=== PATIENT | male | born 1940 | race Caucasian/White ===

== ENCOUNTER 2017-06-17 08:29 | Observation (INO) | payer OTHER ==
[~2017-06-17] VITALS: Ht 177.8 cm; Wt 115.0 kg
[2017-06-17] MEDS ORDERED: DiphenhydrAMINE HCL 50 MG/ML VIAL IV STA ×2 (08:53→13:27)
[2017-06-17] MEDS ORDERED: METHYLPREDNISOLONE 125 MG VIAL IV STA (08:53)
--- NOTE | 2017-06-17 08:56 | EMERGENCY ROOM VISIT NOTE ---
History Report prepared by Marylin: Canelo Turner Under the Supervision of: Dr. Winsome Roman D.O. First contact with patient: 08:47 Chief Complaint: SHORTNESS OF BREATH Stated Complaint: SOB,SORE THROAT History of Present Illness The patient is a 76 year old male who presents to the Emergency Room with complaints of worsening shortness of breath that started upon waking this morning. He says that he has COPD, but he has never been this short of breath. He notes that yesterday morning, he was at a gymnastics meet, and had terrible chills and shaking. The patient states that he does not normally shake. He denies any chest pain, runny nose, abdominal pain, diarrhea, bowel movement changes, urinary symptoms, or leg swelling. He adds that he feels like he is almost going to gag, causing him to feel nauseous. The patent notes no recent exposure to new perfumes or cleaning agents, or any known recent sick contacts. Per the patient's family, the patient sounded almost normal yesterday afternoon after the shaking episode ceased. The patient notes that he has not gotten his flu shot this season, and he does not get a pneumonia shot. Source of History: patient, family Onset: Upon waking this morning Position: other (global - shortness of breath) Symptom Intensity: never had this bad before Timing: worsening Associated Symptoms: + chills, + nausea, No chest pain, No diarrhea, No urinary symptoms Note: Associated symptoms: Shaking episode yesterday. Feels like going to gag. Denies runny nose, bowel movement changes, leg swelling. Review of Systems See HPI for pertinent positives & negatives. A total of 10 systems reviewed and were otherwise negative. Past Medical & Surgical Medical Problems: (1) BPH (benign prostatic hyperplasia) (2) COPD (chronic obstructive pulmonary disease) (3) HTN (hypertension) Family History Family history omitted secondary to patient's advanced age. Social History Drug Use: none Housing Status: lives with family Occupation Status: retired Current/Historical Medications Scheduled Amlodipine (Norvasc), 5 MG PO DAILY Aspirin (Aspirin Ec), 81 MG PO DAILY Losartan Potassium (Cozaar), 100 MG PO DAILY Metoprolol Succ (Toprol Xl) (Toprol-Xl), 50 MG PO DAILY Tamsulosin Hcl (Flomax), 0.4 MG PO HS Allergies Coded Allergies: BEE STING (Unverified Allergy, Unknown, SWELLING, 06/17/17) Physical Exam Vital Signs Date Time Temp Pulse Resp B/P (MAP) Pulse Ox O2 Delivery O2 Flow Rate FiO2 06/17/17 14:59 86 Room Air 06/17/17 14:30 90 23 131/99 92 9.0 06/17/17 13:43 84 06/17/17 12:45 85 24 128/96 92 Nebulizer 06/17/17 10:57 86 24 142/86 91 Nebulizer 06/17/17 10:40 94 Nebulizer 06/17/17 10:36 81 24 122/84 90 Nebulizer 06/17/17 10:07 84 14 92 Nasal Cannula 6.0 06/17/17 09:04 78 24 122/96 93 4.0 06/17/17 08:52 93 Nasal Cannula 4.0 06/17/17 08:48 84 06/17/17 08:42 36.8 89 24 146/109 79 Room Air Physical Exam GENERAL: alert, well appearing, well nourished, no distress, non-toxic EYE EXAM: normal conjunctiva, PERRL and EOM's grossly intact OROPHARYNX: Markedly enlarged and edematous uvula, but is midline. No other exudates or tonsillar hypertrophy. No other mucocutaneous lesions. Lips, buccal mucosa, and tongue normal and mucous membranes are moist NECK: supple, no nuchal rigidity, no adenopathy, non-tender LUNGS: Diminished breath sounds. No wheezes, rhonchi, or rales. Normal chest wall mechanics HEART: no murmurs, S1 normal and S2 normal ABDOMEN: abdomen soft, non-tender, normo-active bowel sounds, no masses, no rebound or guarding. BACK: Back is symmetrical on inspection and there is no deformity, no midline tenderness, no CVA tenderness. SKIN: no rashes and no bruising UPPER EXTREMITIES: upper extremities are grossly normal. LOWER EXTREMITIES: No pitting edema. NEURO EXAM: Normal sensorium, cranial nerves II-XII grossly intact, normal speech, no gross weakness of arms, no gross weakness of legs. Medical Decision & Procedures ER Provider Diagnostic Interpretation: Radiology results have been interpreted by the radiologist and reviewed by me. CHEST 2 VIEWS ROUTINE CLINICAL HISTORY: Shortness of breath COMPARISON STUDY: None FINDINGS: The heart is mildly enlarged. There is aortic tortuosity/ectasia. There is no lobar consolidation. There is interstitial thickening, a finding of uncertain chronicity. There are no significant pleural effusions.[ IMPRESSION: 1. Mild cardiomegaly 2. Aortic tortuosity/ectasia 3. Interstitial thickening, a finding of uncertain chronicity Electronically signed by: William Mcadams M.D. 06/17/2017 9:39 AM Dictated Date/Time: 06/17/2017 9:[address] ANGIOGRAM OF THE CHEST CLINICAL HISTORY: Shortness of breath and elevated d-dimer COMPARISON STUDY: Chest x-ray dated 06/17/2017 TECHNIQUE: Following the IV administration of 94 mL of Optiray-320, CT angiogram of the thorax was performed from the thoracic inlet to the lung bases utilizing the pulmonary embolus protocol. Images are reviewed in the axial, sagittal, and coronal planes. IV contrast was administered without complication. MIP imaging was performed. A dose lowering technique was utilized adhering to the principles of ALARA. CT DOSE: 552.31 mGy.cm FINDINGS: No pathologically enlarged axillary mediastinal or hilar lymph nodes were visualized. There was no evidence of thoracic aortic dilatation. The heart is mildly enlarged with coronary artery calcifications There were no pulmonary artery filling defects to indicate acute pulmonary embolism. No pleural effusions are visualized. There is pulmonary emphysema. There is underlying interstitial lung disease with subpleural reticulation. There is equivocal early honeycombing. There is a 1 cm solid nodule within the right upper lobe. There is an 8 mm solid nodule within the left lower lobe. IMPRESSION: 1. No evidence of acute pulmonary embolism 2. Emphysema. 3. Interstitial lung disease with subpleural reticulation and equivocal early honeycombing 4. Solid 1 cm right upper lobe pulmonary nodule, and solid 8 mm left lower lobe pulmonary nodule. 3-[address] follow-up is recommended. Please refer to below summary of Fleischner criteria recommendations for follow-up of incidental CT nodules (Alexi Serna, Guidelines for management of small pulmonary nodules detected on CT scans: A statement from the Fleischner Society, Radiology 237: [phone].) SOLID NODULES Solitary nodule size: <6 mm * low risk patients: no follow-up needed * high risk patients: optional CT at 12 months Solitary nodule size: 6-8 mm * low risk patients: follow-up at 6-12 months, then consider further follow-up at 18-24 months * high risk patients: initial follow-up CT at 6-12 months and then at 18-24 months if no change Solitary nodule size: >8 mm * either low or high risk patients - consider follow-up CT at 3 months, and/or CT-PET, and/or biopsy Multiple nodules size: <6 mm * low risk patients: no routine follow-up * high risk patients: optional CT at 12 months Multiple nodules size: 6-8 mm * low risk patients: follow-up at 3-6 months, then consider further follow-up at 18-24 months * high risk patients: follow-up at 3-6 months, then at 18-24 months if no change Multiple nodules size: >8 mm * low risk patients: follow-up at 3-6 months, then consider further follow-up at 18-24 months * high risk patients: follow-up at 3-6 months, then at 18-24 months if no change Note: newly detected indeterminate nodule in persons 35 years of age or older. * low risk patients: minimal or absent history of smoking and/or other known risk factors * high risk patients: history of smoking or of other known risk factors (e.g. first degree relative with lung cancer, or exposure to asbestos, radon, uranium) * if a nodule up to 8 mm is partly solid or is ground glass further follow-up is required after 24 months to exclude possible slow growing adenocarcinoma (ANIBAL) SUBSOLID NODULES Solitary pure ground-glass nodule * nodule size <6 mm - no CT follow-up required * nodule size >=6 mm - follow-up CT at 6-12 months, then every 2 years until 5 years Solitary part-solid nodule * nodule size <6 mm - no CT follow-up required * nodule size >=6 mm - follow-up CT at 3-6 months. If unchanged, and solid component remains <6 mm, then annual follow-up for 5 years Multiple subsolid nodules * nodule size <6 mm - follow-up CT at 3-6 months, consider further follow-up at 2 and 4 years if stable * nodule size >=6 mm - follow-up CT at 3-6 months, subsequent management based on the most suspicious nodule(s) Electronically signed by: William Mcadams M.D. 06/17/2017 1:29 PM Dictated Date/Time: 06/17/2017 1:24 PM Laboratory Results Test 06/17/17 08:55 06/17/17 09:00 06/17/17 13:30 Immature Granulocyte % (Auto) 0.5 % White Blood Count 7.86 K/uL (4.8-10.8) Red Blood Count 5.53 M/uL (4.7-6.1) Hemoglobin 17.7 g/dL (14.0-18.0) Hematocrit 51.9 % (42-52) Mean Corpuscular Volume 93.9 fL (80-100) Mean Corpuscular Hemoglobin 32.0 pg (25-34) Mean Corpuscular Hemoglobin Concent 34.1 g/dl (32-36) Platelet Count 124 K/uL (130-400) Mean Platelet Volume 9.7 fL (7.4-10.4) Neutrophils (%) (Auto) 87.1 % Lymphocytes (%) (Auto) 5.1 % Monocytes (%) (Auto) 7.1 % Eosinophils (%) (Auto) 0.1 % Basophils (%) (Auto) 0.1 % Neutrophils # (Auto) 6.84 K/uL (1.4-6.5) Lymphocytes # (Auto) 0.40 K/uL (1.2-3.4) Monocytes # (Auto) 0.56 K/uL (0.11-0.59) Eosinophils # (Auto) 0.01 K/uL (0-0.5) Basophils # (Auto) 0.01 K/uL (0-0.2) Immature Granulocyte # (Auto) 0.04 K/uL (0.00-0.02) Prothrombin Time 12.2 SECONDS (9.0-12.0) Prothromb Time International Ratio 1.1 (0.9-1.1) D-Dimer 5170 ug/L FEU (0-500) Lactic Acid Level 1.1 mmol/L (0.4-2.0) Magnesium Level 2.1 mg/dl (1.8-2.4) Total Bilirubin 0.8 mg/dl (0.2-1) Aspartate Amino Transf (AST/SGOT) 30 U/L (15-37) Alanine Aminotransferase (ALT/SGPT) 31 U/L (12-78) Alkaline Phosphatase 57 U/L (45-117) Troponin I < 0.015 ng/ml (0-0.045) Pro-B-Type Natriuretic Peptide 753 pg/ml (0-900) Total Protein 8.2 gm/dl (6.4-8.2) Albumin 3.5 gm/dl (3.4-5.0) Globulin 4.7 gm/dl (2.5-4.0) Albumin/Globulin Ratio 0.7 (0.9-2) Influenza Type A Antigen Neg for Influ A (NEG) Influenza Type B Antigen Neg for Influ B (NEG) Urine Color YELLOW Urine Appearance CLEAR (CLEAR) Urine pH 5.0 (4.5-7.5) Urine Specific [place] 1.031 (1.000-1.030) Urine Protein 2+ (NEG) Urine Glucose (UA) NEG (NEG) Urine Ketones NEG (NEG) Urine Occult Blood 2+ (NEG) Urine Nitrite NEG (NEG) Urine Bilirubin NEG (NEG) Urine Urobilinogen NEG (NEG) Urine Leukocyte Esterase NEG (NEG) Urine WBC (Auto) 1-5 /hpf (0-5) Urine RBC (Auto) 0-4 /hpf (0-4) Urine Hyaline Casts (Auto) 1-5 /lpf (0-5) Urine Epithelial Cells (Auto) 5-10 /lpf (0-5) Urine Bacteria (Auto) NEG (NEG) Laboratory results per my review. Medications Administered Medications (Trade) Dose Ordered Sig/Shine Route Start Time Stop Time Status Last Admin Dose Admin Methylprednisolone Sodium Succinate (Solu-Medrol IV) 125 mg NOW STAT IV 06/17/17 08:53 06/17/17 08:55 DC 06/17/17 09:02 125 MG Diphenhydramine HCl (Benadryl Inj) 25 mg NOW STAT IV 06/17/17 08:53 06/17/17 08:55 DC 06/17/17 08:59 25 MG Racepinephrine (Raccemic Epinephrine 2.25% 0.5ML Neb) 0.5 ml NOW STAT INH 06/17/17 09:53 06/17/17 09:56 DC 06/17/17 10:06 0.5 ML Albuterol/ Ipratropium (Duoneb) 3 ml NOW STAT INH 06/17/17 11:15 06/17/17 11:16 DC 06/17/17 11:15 3 ML Diphenhydramine HCl (Benadryl Inj) 25 mg NOW STAT IV 06/17/17 13:27 06/17/17 13:28 DC 06/17/17 13:44 25 MG Albuterol/ Ipratropium (Duoneb) 3 ml NOW STAT INH 06/17/17 13:33 06/17/17 13:34 DC 06/17/17 13:41 3 ML ECG Indication: SOB/dyspnea Rate (beats per minute): 81 Rhythm: sinus rhythm Findings: T-wave inversion (lead 3), no acute ischemic change, left axis deviation, other (normal intervals, baseline artifact) ED Course 0847: The patient was evaluated in room B9. A complete history and physical exam was performed. 0853: Ordered Benadryl Inj 25 mg IV, Solu-Medrol IV 125 mg. 0951: I reevaluated and updated the patient. Ordered Raccemic Epinephrine 2.25% 0.5ML Neb 0.5 ml INH. 1044: I reevaluated the patient and his uvula is still swollen but better. 1115: Ordered Duoneb 3 ml INH. 1222: I reevaluated the patient and his uvula is better. Breathing is better. Stats are still 90%. 1434: I reevaluated the patient and he looks much better. His uvula is better. 1520: Upon reevaluation, the patient is resting, but his pulse ox went down. I discussed the findings and the treatment plan with the patient. He expresses agreement and understanding. He will be evaluated for further management. Medical Decision Differential diagnoses includes but is not limited to pneumonia, bronchitis, COPD/Asthma exacerbation, pneumothorax, pulmonary embolism, congestive heart failure, acute coronary syndrome Pt with very atypical presentation. Initially SOB thought perhaps related to significant uvulitis in the setting of COPD hx. Pt not on home oxygen. Cultures drawn due to pt's description of rigors yesterday. No hx of pneumonia. Pt with no other focal symptoms to suggest additional infectious etiology. Doubt deep space infection, doubt strep pharyngitis. Uvulitis improved with meds here and pt improved with oxygen/nebs/steroids. Pt however, dropped sats into mid 80's with ambulation and appeared more sob. I discussed my concern with pt and his family and he is agreeable with additional evaluation by the hospitalist. Afebrile here and no evidence of bacteremia/ sepsis. Medication Reconcilliation Current Medication List: was personally reviewed by me Blood Pressure Screening Patient's blood pressure: Normal blood pressure Consults Time Called: 1529 Consulting Physician: Sherrell hospitalist Returned Call: [phone] D/W Dr. Rizzo for evaluation. Impression Primary Impression: Dyspnea Additional Impressions: COPD exacerbation Uvulitis Scribe Attestation The scribe's documentation has been prepared under my direction and personally reviewed by me in its entirety. I confirm that the note above accurately reflects all work, treatment, procedures, and medical decision making performed by me. Departure Information Dispostion Being Evaluated By Hospitalist Referrals No Doctor, Assigned (PCP) Patient Instructions [facility] Problem Qualifiers Primary Impression: Dyspnea Dyspnea type: unspecified Qualified Codes: R06.00 - Dyspnea, unspecified
[2017-06-17 09:29] LABS: BASO % 0.1 %; BASO ABS # 0.01 K/uL (0-0.2); COMPLETE YES; EOS % 0.1 %; HEMATOCRIT 51.9 % (42-52); IG% 0.5 %; LYMPH % 5.1 %; MEAN CELL VOLUME 93.9 fL (80-100); MEAN CORPUSCULAR HGB CONC 34.1 g/dl (32-36); MEAN PLATELET VOLUME 9.7 fL (7.4-10.4); MONO % 7.1 %; NEUT % 87.1 %; PLATELET COUNT 124 K/uL (130-400); RED BLOOD COUNT 5.53 M/uL (4.7-6.1); WHITE BLOOD COUNT 7.86 K/uL (4.8-10.8)
--- NOTE | 2017-06-17 09:40 | DIAGNOSTIC IMAGING REPORT ---
CHEST 2 VIEWS ROUTINE CLINICAL HISTORY: Shortness of breath COMPARISON STUDY: None FINDINGS: The heart is mildly enlarged. There is aortic tortuosity/ectasia. There is no lobar consolidation. There is interstitial thickening, a finding of uncertain chronicity. There are no significant pleural effusions.[ IMPRESSION: 1. Mild cardiomegaly 2. Aortic tortuosity/ectasia 3. Interstitial thickening, a finding of uncertain chronicity Electronically signed by: William Mcadams M.D. 06/17/2017 9:39 AM Dictated Date/Time: 06/17/2017 9:37 AM
[2017-06-17] MEDS ORDERED: AMLO-110 PO (09:45)
[2017-06-17] MEDS ORDERED: TAMS0.4C38 PO (09:45)
[2017-06-17] MEDS ORDERED: ASPI81TA28 PO (09:45)
[2017-06-17] MEDS ORDERED: LOSA100T65 PO (09:45)
[2017-06-17] MEDS ORDERED: METO50TA7 PO (09:45)
[2017-06-17 09:51] LABS: INR 1.1 (0.9-1.1); PROTHROMBIN TIME (PATIENT) 12.2 SECONDS (9.0-12.0)
[2017-06-17] MEDS ORDERED: RACEPINEPHRINE 2.25% NEBU SOLN 0.5 ML VIAL INH STA ×2 (09:51→09:53)
[2017-06-17 09:54] LABS: ALT/SGPT 31 U/L (12-78); AST/SGOT 30 U/L (15-37); BLOOD UREA NITROGEN 27 mg/dl (7-18); BUN/CREATININE RATIO 16.8 (10-20); CARBON DIOXIDE 23 mmol/L (21-32); CHLORIDE 101 mmol/L (98-107); GLUCOSE 139 mg/dl (70-99); MAGNESIUM 2.1 mg/dl (1.8-2.4); POTASSIUM 3.9 mmol/L (3.5-5.1); SODIUM 135 mmol/L (136-145)
[2017-06-17 09:59] LABS: ALB/GLOB RATIO 0.7 (0.9-2); ALKALINE PHOSPHATASE 57 U/L (45-117)
[2017-06-17 10:07] VITALS: PULSE 84; O2SAT 92
[2017-06-17] MEDS ORDERED: ALBUT/IPRATROP 3MG/0.5MG NEB 3 ML VIAL INH STA ×2 (11:15→13:33)
[2017-06-17] MEDS ORDERED: OPTIRAY 320 IV PRN (13:30)
--- NOTE | 2017-06-17 13:30 | DIAGNOSTIC IMAGING REPORT ---
CT ANGIOGRAM OF THE CHEST CLINICAL HISTORY: Shortness of breath and elevated d-dimer COMPARISON STUDY: Chest x-ray dated 06/17/2017 TECHNIQUE: Following the IV administration of 94 mL of Optiray-320, CT angiogram of the thorax was performed from the thoracic inlet to the lung bases utilizing the pulmonary embolus protocol. Images are reviewed in the axial, sagittal, and coronal planes. IV contrast was administered without complication. MIP imaging was performed. A dose lowering technique was utilized adhering to the principles of ALARA. CT DOSE: 552.31 mGy.cm FINDINGS: No pathologically enlarged axillary mediastinal or hilar lymph nodes were visualized. There was no evidence of thoracic aortic dilatation. The heart is mildly enlarged with coronary artery calcifications There were no pulmonary artery filling defects to indicate acute pulmonary embolism. No pleural effusions are visualized. There is pulmonary emphysema. There is underlying interstitial lung disease with subpleural reticulation. There is equivocal early honeycombing. There is a 1 cm solid nodule within the right upper lobe. There is an 8 mm solid nodule within the left lower lobe. IMPRESSION: 1. No evidence of acute pulmonary embolism 2. Emphysema. 3. Interstitial lung disease with subpleural reticulation and equivocal early honeycombing 4. Solid 1 cm right upper lobe pulmonary nodule, and solid 8 mm left lower lobe pulmonary nodule. 3-[address] follow-up is recommended. Please refer to below summary of Fleischner criteria recommendations for follow-up of incidental CT nodules (Alexi Serna, Guidelines for management of small pulmonary nodules detected on CT scans: A statement from the Fleischner Society, Radiology 237: [phone].) SOLID NODULES Solitary nodule size: <6 mm * low risk patients: no follow-up needed * high risk patients: optional CT at 12 months Solitary nodule size: 6-8 mm * low risk patients: follow-up at 6-12 months, then consider further follow-up at 18-24 months * high risk patients: initial follow-up CT at 6-12 months and then at 18-24 months if no change Solitary nodule size: >8 mm * either low or high risk patients - consider follow-up CT at 3 months, and/or CT-PET, and/or biopsy Multiple nodules size: <6 mm * low risk patients: no routine follow-up * high risk patients: optional CT at 12 months Multiple nodules size: 6-8 mm * low risk patients: follow-up at 3-6 months, then consider further follow-up at 18-24 months * high risk patients: follow-up at 3-6 months, then at 18-24 months if no change Multiple nodules size: >8 mm * low risk patients: follow-up at 3-6 months, then consider further follow-up at 18-24 months * high risk patients: follow-up at 3-6 months, then at 18-24 months if no change Note: newly detected indeterminate nodule in persons 35 years of age or older. * low risk patients: minimal or absent history of smoking and/or other known risk factors * high risk patients: history of smoking or of other known risk factors (e.g. first degree relative with lung cancer, or exposure to asbestos, radon, uranium) * if a nodule up to 8 mm is partly solid or is ground glass further follow-up is required after 24 months to exclude possible slow growing adenocarcinoma (ANIBAL) SUBSOLID NODULES Solitary pure ground-glass nodule * nodule size <6 mm - no CT follow-up required * nodule size >=6 mm - follow-up CT at 6-12 months, then every 2 years until 5 years Solitary part-solid nodule * nodule size <6 mm - no CT follow-up required * nodule size >=6 mm - follow-up CT at 3-6 months. If unchanged, and solid component remains <6 mm, then annual follow-up for 5 years Multiple subsolid nodules * nodule size <6 mm - follow-up CT at 3-6 months, consider further follow-up at 2 and 4 years if stable * nodule size >=6 mm - follow-up CT at 3-6 months, subsequent management based on the most suspicious nodule(s) Electronically signed by: William Mcadams M.D. 06/17/2017 1:29 PM Dictated Date/Time: 06/17/2017 1:24 PM
[2017-06-17 13:50] LABS: URINE APPEARANCE CLEAR (CLEAR); URINE BILIRUBIN NEG (NEG); URINE COLOR YELLOW; URINE NITRITE NEG (NEG); URINE SPECIFIC GRAVITY 1.031 (1.000-1.030); UROBILINOGEN NEG (NEG); ZZUR CULT IF INDIC CLEAN CATCH NO
[2017-06-17 13:51] LABS: MANUAL MICROSCOPIC REQUIRED? NO; REVIEW REQ? NO
[2017-06-17] MEDS ORDERED: IV FLUIDS COMPLETED PRN (17:00)
--- NOTE | 2017-06-17 17:16 | History and Physical ---
History & Physical Date & Time of Service: Jun 17, 2017 at 16:36 Chief Complaint: Sob,Sore Throat Primary Care Physician: No Doctor, Assigned History of Present Illness Source: patient, family, hospital records 76 year old male with PMH of COPD, BPH, HTN presents to the Emergency Room with complaints of worsening shortness of breath starting this morning. Pt said that yesterday he went to watch gymnastic, he said that while at gymnastic he had a chills and starting to shake. He said that this morning he woke up with SOB. Pt said that SOB worsening with minimal exertion. He said that he does have hx of COPD but never felt as SOB as he felt today. He also complaints of sore throat. Pt said that he did not check his temp when he developed the chills and shakiness. He denies any chest pain, palpitation, fever, runny nose, abdominal pain, diarrhea, urinary symptoms, no recent travel or sick contact. In the ER pt oxygen saturation dropped in the 85's. He received solumedrol, racemic epinephrine, Benadryl and DuoNeb treatment in the ER. Past Medical/Surgical History Medical Problems: (1) COPD (chronic obstructive pulmonary disease) Status: Chronic Social History Smoking Status: Former Smoker Drug Use: none Occupational Status: retired Allergies Coded Allergies: BEE STING (Unverified Allergy, Unknown, SWELLING, 06/17/17) Home Medications Scheduled Amlodipine (Norvasc), 5 MG PO DAILY Aspirin (Aspirin Ec), 81 MG PO DAILY Losartan Potassium (Cozaar), 100 MG PO DAILY Metoprolol Succ (Toprol Xl) (Toprol-Xl), 50 MG PO DAILY Tamsulosin Hcl (Flomax), 0.4 MG PO HS Review of Systems Constitutional: + chills, + problem reported (shaking), No fever Eyes: No worsening of vision, No eye pain ENT: + sore throat, No nasal symptoms Respiratory: + shortness of breath, + dyspnea on exertion, No cough, No sputum Cardiovascular: No chest pain, No orthopnea, No edema, No claudication, No palpitations Abdomen: No pain, No vomiting, No diarrhea Musculoskeletal: No swelling, No calf pain Genitourinary - Male: No hematuria, No dysuria Neurologic: No memory loss, No paralysis Psychiatric: No anxiety, No substance abuse Endocrine: No excessive thirst Hematologic / Lymphatic: No abnormal bleeding/bruising Integumentary: No rash, No itch Physical Exam Vital Signs Date Time Temp Pulse Resp B/P (MAP) Pulse Ox O2 Delivery O2 Flow Rate FiO2 06/17/17 16:30 85 105/81 89 Humidified Oxygen 9.0 06/17/17 14:59 86 Room Air 06/17/17 14:30 90 23 131/99 92 9.0 06/17/17 13:43 84 06/17/17 12:45 85 24 128/96 92 Nebulizer 06/17/17 10:57 86 24 142/86 91 Nebulizer 06/17/17 10:40 94 Nebulizer 06/17/17 10:36 81 24 122/84 90 Nebulizer 06/17/17 10:07 84 14 92 Nasal Cannula 6.0 06/17/17 09:04 78 24 122/96 93 4.0 06/17/17 08:52 93 Nasal Cannula 4.0 06/17/17 08:48 84 06/17/17 08:42 36.8 89 24 146/109 79 Room Air General Appearance: WD/WN, no apparent distress Head: normocephalic, atraumatic Eyes: PERRL, EOMI ENT: hearing grossly normal, + pertinent finding (swelling and redness of the uvula, no exudate) Neck: no JVD, trachea midline Respiratory/Chest: lungs clear, normal breath sounds, no accessory muscle use Cardiovascular: regular rate, rhythm, no edema Abdomen/GI: normal bowel sounds, non tender Back: no CVA tenderness Extremities/Musculoskelatal: no calf tenderness Neurologic/Psych: no motor/sensory deficits, alert, oriented x 3 Skin: warm/dry, no rash Diagnostics Laboratory Results Results Past 24 Hours Test 06/17/17 08:55 06/17/17 09:00 06/17/17 13:30 Range/Units White Blood Count 7.86 4.8-10.8 K/uL Red Blood Count 5.53 4.7-6.1 M/uL Hemoglobin 17.7 14.0-18.0 g/dL Hematocrit 51.9 42-52 % Mean Corpuscular Volume 93.9 80-100 fL Mean Corpuscular Hemoglobin 32.0 25-34 pg Mean Corpuscular Hemoglobin Concent 34.1 32-36 g/dl Platelet Count 124 130-400 K/uL Mean Platelet Volume 9.7 7.4-10.4 fL Neutrophils (%) (Auto) 87.1 % Lymphocytes (%) (Auto) 5.1 % Monocytes (%) (Auto) 7.1 % Eosinophils (%) (Auto) 0.1 % Basophils (%) (Auto) 0.1 % Neutrophils # (Auto) 6.84 1.4-6.5 K/uL Lymphocytes # (Auto) 0.40 1.2-3.4 K/uL Monocytes # (Auto) 0.56 0.11-0.59 K/uL Eosinophils # (Auto) 0.01 0-0.5 K/uL Basophils # (Auto) 0.01 0-0.2 K/uL RDW Standard Deviation 46.6 36.4-46.3 fL RDW Coefficient of Variation 13.6 11.5-14.5 % Immature Granulocyte % (Auto) 0.5 % Immature Granulocyte # (Auto) 0.04 0.00-0.02 K/uL Prothrombin Time 12.2 9.0-12.0 SECONDS Prothromb Time International Ratio 1.1 0.9-1.1 D-Dimer 5170 0-500 ug/L FEU Sodium Level 135 136-145 mmol/L Potassium Level 3.9 3.5-5.1 mmol/L Chloride Level 101 98-107 mmol/L Carbon Dioxide Level 23 21-32 mmol/L Anion Gap 12.0 3-11 mmol/L Blood Urea Nitrogen 27 7-18 mg/dl Creatinine 1.60 0.60-1.40 mg/dl Est Creatinine Clear Calc Drug Dose 51.4 ml/min Estimated GFR () 48.5 Estimated GFR (Non- 41.8 BUN/Creatinine Ratio 16.8 10-20 Random Glucose 139 70-99 mg/dl Lactic Acid Level 1.1 0.4-2.0 mmol/L Calcium Level 9.0 8.5-10.1 mg/dl Magnesium Level 2.1 1.8-2.4 mg/dl Total Bilirubin 0.8 0.2-1 mg/dl Aspartate Amino Transf (AST/SGOT) 30 15-37 U/L Alanine Aminotransferase (ALT/SGPT) 31 12-78 U/L Alkaline Phosphatase 57 45-117 U/L Troponin I < 0.015 0-0.045 ng/ml Pro-B-Type Natriuretic Peptide 753 0-900 pg/ml Total Protein 8.2 6.4-8.2 gm/dl Albumin 3.5 3.4-5.0 gm/dl Globulin 4.7 2.5-4.0 gm/dl Albumin/Globulin Ratio 0.7 0.9-2 Influenza Type A Antigen Neg for Influ A NEG Influenza Type B Antigen Neg for Influ B NEG Urine Color YELLOW Urine Appearance CLEAR CLEAR Urine pH 5.0 4.5-7.5 Urine Specific [place] 1.031 1.000-1.030 Urine Protein 2+ NEG Urine Glucose (UA) NEG NEG Urine Ketones NEG NEG Urine Occult Blood 2+ NEG Urine Nitrite NEG NEG Urine Bilirubin NEG NEG Urine Urobilinogen NEG NEG Urine Leukocyte Esterase NEG NEG Urine WBC (Auto) 1-5 0-5 /hpf Urine RBC (Auto) 0-4 0-4 /hpf Urine Hyaline Casts (Auto) 1-5 0-5 /lpf Urine Epithelial Cells (Auto) 5-10 0-5 /lpf Urine Bacteria (Auto) NEG NEG Microbiology Results 06/17/17 Blood Culture, Received Pending 06/17/17 Blood Culture, Received Pending Diagnostic Radiology CT ANGIOGRAM OF THE CHEST CLINICAL HISTORY: Shortness of breath and elevated d-dimer COMPARISON STUDY: Chest x-ray dated 06/17/2017 TECHNIQUE: Following the IV administration of 94 mL of Optiray-320, CT angiogram of the thorax was performed from the thoracic inlet to the lung bases utilizing the pulmonary embolus protocol. Images are reviewed in the axial, sagittal, and coronal planes. IV contrast was administered without complication. MIP imaging was performed. A dose lowering technique was utilized adhering to the principles of ALARA. CT DOSE: 552.31 mGy.cm FINDINGS: No pathologically enlarged axillary mediastinal or hilar lymph nodes were visualized. There was no evidence of thoracic aortic dilatation. The heart is mildly enlarged with coronary artery calcifications There were no pulmonary artery filling defects to indicate acute pulmonary embolism. No pleural effusions are visualized. There is pulmonary emphysema. There is underlying interstitial lung disease with subpleural reticulation. There is equivocal early honeycombing. There is a 1 cm solid nodule within the right upper lobe. There is an 8 mm solid nodule within the left lower lobe. IMPRESSION: 1. No evidence of acute pulmonary embolism 2. Emphysema. 3. Interstitial lung disease with subpleural reticulation and equivocal early honeycombing 4. Solid 1 cm right upper lobe pulmonary nodule, and solid 8 mm left lower lobe pulmonary nodule. 3-[address] follow-up is recommended. Please refer to below summary of Fleischner criteria recommendations for follow-up of incidental CT nodules (Alexi Serna, Guidelines for management of small pulmonary nodules detected on CT scans: A statement from the Fleischner Society, Radiology 237: [phone].) SOLID NODULES Solitary nodule size: <6 mm * low risk patients: no follow-up needed * high risk patients: optional CT at 12 months Solitary nodule size: 6-8 mm * low risk patients: follow-up at 6-12 months, then consider further follow-up at 18-24 months * high risk patients: initial follow-up CT at 6-12 months and then at 18-24 months if no change Solitary nodule size: >8 mm * either low or high risk patients - consider follow-up CT at 3 months, and/or CT-PET, and/or biopsy Multiple nodules size: <6 mm * low risk patients: no routine follow-up * high risk patients: optional CT at 12 months Multiple nodules size: 6-8 mm * low risk patients: follow-up at 3-6 months, then consider further follow-up at 18-24 months * high risk patients: follow-up at 3-6 months, then at 18-24 months if no change Multiple nodules size: >8 mm * low risk patients: follow-up at 3-6 months, then consider further follow-up at 18-24 months * high risk patients: follow-up at 3-6 months, then at 18-24 months if no change Note: newly detected indeterminate nodule in persons 35 years of age or older. * low risk patients: minimal or absent history of smoking and/or other known risk factors * high risk patients: history of smoking or of other known risk factors (e.g. first degree relative with lung cancer, or exposure to asbestos, radon, uranium) * if a nodule up to 8 mm is partly solid or is ground glass further follow-up is required after 24 months to exclude possible slow growing adenocarcinoma (ANIBAL) SUBSOLID NODULES Solitary pure ground-glass nodule * nodule size <6 mm - no CT follow-up required * nodule size >=6 mm - follow-up CT at 6-12 months, then every 2 years until 5 years Solitary part-solid nodule * nodule size <6 mm - no CT follow-up required * nodule size >=6 mm - follow-up CT at 3-6 months. If unchanged, and solid component remains <6 mm, then annual follow-up for 5 years Multiple subsolid nodules * nodule size <6 mm - follow-up CT at 3-6 months, consider further follow-up at 2 and 4 years if stable * nodule size >=6 mm - follow-up CT at 3-6 months, subsequent management based on the most suspicious nodule(s) Electronically signed by: William Mcadams M.D. 06/17/2017 1:29 PM Dictated Date/Time: 06/17/2017 1:24 PM [~ rep ct add3]] CHEST 2 VIEWS ROUTINE CLINICAL HISTORY: Shortness of breath COMPARISON STUDY: None FINDINGS: The heart is mildly enlarged. There is aortic tortuosity/ectasia. There is no lobar consolidation. There is interstitial thickening, a finding of uncertain chronicity. There are no significant pleural effusions.[ IMPRESSION: 1. Mild cardiomegaly 2. Aortic tortuosity/ectasia 3. Interstitial thickening, a finding of uncertain chronicity Electronically signed by: William Mcadams M.D. 06/17/2017 9:39 AM Dictated Date/Time: 06/17/2017 9:37 AM Impression Assessment and Plan Worsening Dyspnea Pharyngitis Uvulitis Present with shortness of breath associated with chills and shaking Afebrile, no leukocytosis Received solumedrol/ IV benadryl/ duoneb and epinephrine in the ER Procalcitonin adding- result pending lactic acid normal Continue supplement oxygen Blood cx collected in the ER Will start on Abx if procalcitonin elevate Monitor CBC ( mostly will be elevated due to steroid) Elevated creatine level Unknown baseline Possible related to dehydration since pt has not been eating or drink much Will start on gentle IVF Hold losartan for now monitor BMP HTN On Norvasc, metoprolol Losartan on hold Monitor BP BPH Continue flomax Diet Start on Full liquid diet due to the sore throat DVT px on heparin subq CODE STATUS FULL CODE Level of Care Med/Surg Resuscitation Status FULL RESUSCITATION VTE Prophylaxis VTE Risk Assessment Done? Y/N: Yes Risk Level: Moderate Given or contraindicated: Unfractionated heparin SQ
[2017-06-17 17:55] VITALS: BP 109/77; PULSE 80; TEMP 36.6; O2SAT 94; Ht 177.8 cm; Wt 115.0 kg
[2017-06-17] MEDS: SODIUM CHLORIDE 0.9% 1000ML 1,000 ML IV SCH (19:08)
[2017-06-17] MEDS: AMPICILLIN/SULBACTAM SOD INJ 3,000 MG in SODIUM CHLORIDE 0.9% 100ML 100 ML IV SCH (19:51)
[2017-06-17 20:07] VITALS: PULSE 77; O2SAT 94
[2017-06-17] MEDS: ALBUT/IPRATROP 3MG/0.5MG NEB 3 ML VIAL INH SCH ×2 (20:07→22:43)
[2017-06-17] MEDS ORDERED: INFLUENZA ADMINISTRATION CHARGE ONE (20:45)
[2017-06-17] MEDS ORDERED: PNEUMOCOCCAL ADMINISTRATION CHARGE ONE (20:45)
[2017-06-17] MEDS ORDERED: PNEUMOCOCCAL POLYSACCHARIDES 25 MCG/0.5 ML VIAL/SYR IM. ONE (20:45)
[2017-06-17] MEDS ORDERED: INFLUENZA VACCINE HIGH DOSE 65+ 0.5 ML SYR IM. ONE (20:45)
[2017-06-17] MEDS: TAMSULOSIN HCL 0.4 MG CAP PO SCH (21:04)
[2017-06-17] MEDS: METHYLPREDNISOLONE IV 20 MG in SYRINGE 0 ML IV SCH (21:04)
[2017-06-17] MEDS: HEPARIN SOD 5000 UNIT/0.5 ML CARP SQ SCH (21:05)
[2017-06-17 21:58] VITALS: O2SAT 91
[2017-06-17 22:43] VITALS: PULSE 67; O2SAT 94
[2017-06-17 22:44] VITALS: BP 109/73; PULSE 68; TEMP 36.8; O2SAT 92
[2017-06-18] VITALS (14 sets, daily range): BP systolic 115–133; BP diastolic 77–84; PULSE 62–89; TEMP 36.4–36.6; O2SAT 90–95
[2017-06-18] MEDS: AMPICILLIN/SULBACTAM SOD INJ 3,000 MG in SODIUM CHLORIDE 0.9% 100ML 100 ML IV SCH ×4 (02:03→20:30)
[2017-06-18] MEDS: ALBUT/IPRATROP 3MG/0.5MG NEB 3 ML VIAL INH SCH ×6 (03:19→23:37)
[2017-06-18] MEDS: SODIUM CHLORIDE 0.9% 1000ML 1,000 ML IV SCH ×2 (05:35→14:50)
[2017-06-18] MEDS: METHYLPREDNISOLONE IV 20 MG in SYRINGE 0 ML IV SCH ×3 (05:35→21:40)
[2017-06-18] MEDS: HEPARIN SOD 5000 UNIT/0.5 ML CARP SQ SCH ×3 (05:38→21:39)
[2017-06-18] MEDS: ASPIRIN 81 MG ECTAB PO SCH (07:53)
[2017-06-18] MEDS: METOPROLOL SUCC 50MG EXT REL TAB PO SCH (07:53)
[2017-06-18] MEDS: AMLODIPINE BESYLATE 5 MG TAB PO SCH (07:53)
[2017-06-18 08:09] LABS: MEAN CELL VOLUME 94.3 fL (80-100); MEAN CORPUSCULAR HEMOGLOBIN 31.3 pg (25-34); MEAN CORPUSCULAR HGB CONC 33.2 g/dl (32-36); MEAN PLATELET VOLUME 9.7 fL (7.4-10.4); PLATELET COUNT 138 K/uL (130-400); WHITE BLOOD COUNT 10.88 K/uL (4.8-10.8)
[2017-06-18 08:33] LABS: BUN/CREATININE RATIO 19.3 (10-20); CALCIUM 8.6 mg/dl (8.5-10.1); CREATININE 1.67 mg/dl (0.60-1.40)
--- NOTE | 2017-06-18 15:14 | Progress Note ---
Medicine Progress Note Date & Time of Visit: Jun 18, 2017 at 15:00. Subjective Pt was seen and examined Sitting at the edge of the bed with no distress Pt said that his breathing feels much better Pt said that his throat does not hurt as bad at it was yesterday Pt oxygen sat dropped during sleep I called his PCP today From the office chart his last oxygen sat was 96% on RA Pt has no hx of COPD on the PCP chart Pt said that he has been having SOB on exertion for the last 5 months Denies any chest pain, palpitation, dizziness and SOB Objective Last 8 Hrs Date Time Temp Pulse Resp B/P (MAP) Pulse Ox O2 Delivery O2 Flow Rate FiO2 06/18/17 14:57 62 16 94 Nasal Cannula 4.0 06/18/17 13:06 92 Humidified Oxygen 4.5 06/18/17 12:15 94 Humidified Oxygen 5.0 06/18/17 11:27 68 16 91 Nasal Cannula 5.0 06/18/17 10:14 93 Humidified Oxygen 5.0 06/18/17 08:00 95 Humidified Oxygen 6.0 06/18/17 07:47 93 Humidified Oxygen 12.0 Free Flow/[place] 06/18/17 07:31 80 16 91 Room Air 06/18/17 07:07 36.4 89 20 133/83 (100) 91 Physical Exam: General- No acute distress Head- atraumatic Eyes- PERRL, EOMI ENT- Uvula swelling and mild erythematous Neck- supple, no JVD Lungs- clear to auscultation Heart- regular rhythm; no murmur Abdomen- normal bowel sounds, soft, Extremities-No calf tenderness Neuro- alert, oriented x 3; PERRL, EOMI; no facial palsy; Skin- warm & dry Laboratory Results: Last 24 Hours Test 06/18/17 07:37 06/18/17 10:41 White Blood Count 10.88 K/uL Red Blood Count 5.30 M/uL Hemoglobin 16.6 g/dL Hematocrit 50.0 % Mean Corpuscular Volume 94.3 fL Mean Corpuscular Hemoglobin 31.3 pg Mean Corpuscular Hemoglobin Concent 33.2 g/dl RDW Standard Deviation 46.1 fL RDW Coefficient of Variation 13.4 % Platelet Count 138 K/uL Mean Platelet Volume 9.7 fL Sodium Level 138 mmol/L Potassium Level 4.0 mmol/L Chloride Level 102 mmol/L Carbon Dioxide Level 24 mmol/L Anion Gap 12.0 mmol/L Blood Urea Nitrogen 32 mg/dl Creatinine 1.67 mg/dl Est Creatinine Clear Calc Drug Dose 49.3 ml/min Estimated GFR () 46.0 Estimated GFR (Non- 39.7 BUN/Creatinine Ratio 19.3 Random Glucose 181 mg/dl Calcium Level 8.6 mg/dl Procalcitonin 4.51 ng/ml Assessment & Plan Worsening Dyspnea Pharyngitis Uvulitis Present with shortness of breath associated with chills and shaking Afebrile, no leukocytosis Received solumedrol/ IV benadryl/ duoneb and epinephrine in the ER Elevated Procalcitonin lactic acid normal Continue required 4L supplement oxygen to keep sat above 93% Blood cx pending Continue Unasyn 3g q6h Called PCP office his last oxygen sat was 96RA on his last office visit in 03/15 No hx of COPD from clinic chart Will get an overnight pulse oximetry Pulmonology consult- pending RONNY Creatine on admission was 1.6 Called PCP his last creatine was 1.2 on 03/15 Possible related to dehydration since pt has not been eating or drink much Continue IVF Continue holding losartan monitor BMP HTN On Norvasc, metoprolol Losartan on hold Monitor BP Stable BPH Continue flomax Diet Continue Full liquid diet due to the sore throat DVT px on heparin subq CODE STATUS FULL CODE Consultants: Pulmonology Current Inpatient Medications: Current Inpatient Medications Medications (Trade) Dose Ordered Sig/Shine Route Start Time Stop Time Status Last Admin Dose Admin Ioversol (Optiray 320) 125 ml UD PRN IV 06/17/17 13:30 06/21/17 13:29 Heparin Sodium (Porcine) (Heparin Sq 5000 Unit/0.5ml) 5,000 unit Q8 SQ 06/17/17 22:00 07/17/17 21:59 Sodium Chloride 1,000 ml @ 100 mls/hr Q10H IV 06/17/17 18:32 07/17/17 18:31 06/18/17 14:50 100 MLS/HR Amlodipine Besylate (Norvasc Tab) 5 mg DAILY PO 06/18/17 08:00 07/18/17 08:59 06/18/17 07:53 5 MG Aspirin (Ecotrin Tab) 81 mg DAILY PO 06/18/17 08:00 07/18/17 08:59 06/18/17 07:53 81 MG Metoprolol Succinate (Toprol Xl Tab) 50 mg DAILY PO 06/18/17 08:00 07/18/17 08:59 06/18/17 07:53 50 MG Tamsulosin HCl (Flomax Cap) 0.4 mg HS PO 06/17/17 22:00 07/17/17 21:59 06/17/17 21:04 0.4 MG Albuterol/ Ipratropium (Duoneb) 3 ml Q4R INH 06/17/17 20:00 07/17/17 19:59 06/18/17 14:56 3 ML Miscellaneous (Iv Fluids Completed) 1 ea PRN PRN N/A 06/17/17 17:00 06/17/18 16:59 Ampicillin Sodium/ Sulbactam Sodium 3000 mg/Sodium Chloride 108 ml @ 200 mls/hr Q6H IV 06/17/17 18:00 06/27/17 17:59 06/18/17 14:06 200 MLS/HR Methylprednisolone Sodium Succinate 20 mg/Syringe 0.32 ml @ 1.5 mls/min Q8H IV 06/17/17 22:00 07/17/17 21:59 06/18/17 13:08 1.5 MLS/MIN
--- NOTE | 2017-06-18 15:16 | Pulmonary Consultation ---
History General Date of Service: Jun 18, 2017. Stated Complaint: Dyspnea HPI The patient is a 76 year old male who presents to [facility] with complaints of Dyspnea. The patient's primary care provider is No Doctor, Assigned. Mr. Fontenot is a 76-year-old male with history of COPD, FEV1 unknown, takes albuerol inhaler prn who presents to the ER with acute shortness of breath occurred shortly after awakening on 06/17/2017. His symptoms shaking and chills started while he was at his [employer] one day prior to admission. He states that he felt chilled, turned up the heat and went to bed. He also had symptoms of nausea but denies any vomiting. Patient complained of sore throat, difficulty swallowing, associated with drooling and difficulty handling secretions upon rising and presented to the ER for further evaluation. He denies any fevers, chest pain, palpitations, rhinorrhea, cough, night sweats, hemoptysis, or weight loss. He denies any genitourinary or other gastrointestinal symptoms. He denies any history of GERD. Does have occasional episodes of coughing while eating. He denies any sick contacts or recent travel. He denies any known allergic exposures to any medications or foods. His exercise tolerance is 50 feet, been progressively worsening over last few months. He denies any orthopnea, paroxysmal nocturnal dyspnea or lower extremity edema. He denies any musculoskeletal weakness, rashes or skin changes. He is a former smoker and quit about 20 years ago. He smoked for 50 years and has a 1 pack ppd smoking history. He is current alcohol user. He drinks a minimum of three 12 oz. beers a day, sometimes with 2-3 rum drinks. He denies any loss of consciousness or aspiration episodes. He denies any withdrawal symptoms such as shakiness or seizures associated with alcohol use. He denies any nose drops or irradiation to the lung. Occupational and environmental exposures include: automobile fumes as a child while working in his [employer]. 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 Several of coworkers have from pulmonary diseases. Also worked in air conditioning/refrigeration. He denies any exposures to pets/birds, humidifiers, hot tubs. Wet carpets or bailey. He denies any family history of pulmonary disease. Upon arrival to the ER his temperature was 36.8, pulse 89, respiratory rate 24, blood pressure 146/109, saturating 79% on room air. He was subsequently placed on 4 L nasal cannula with increased oxygen saturation to 93%. Laboratory data on admission showed a sodium of 135, potassium 3.9, chloride 101 , carbon dioxide level 12, BUN 27 creatinine 1.67. Calcium and magnesium were within normal limits as well as LFTs. Troponin was less than 0.015. ProBNP 753. D-dimer was 5170. Pro-calcitonin 6.31. Blood cultures were drawn still pending. Influenza A and B PCR are negative. UA positive for 2+ urine protein and 2+ urine occult blood. Negative for leukocyte esterase, nitrites and bacteria. In the ER he received Benadryl 25 mg 2, Solu-Medrol 125 mg IV, racemic epi 0.5 MLS 2, albuterol/ipratropium 3 mL 2. Chest x-ray showed mild cardiomegaly, aortic tortuosity and interstitial thickening. CT of the chest with contrast was done and showed no evidence of pulmonary embolism. There were signs of emphysema as well as interstitial lung disease with subpleural reticulation suggestive of possible early honeycombing. There is also a 1 cm solid right upper lobe pulmonary nodule as well as a solid 8 mm left lower lobe pulmonary nodule. He was admitted acute hypoxic respiratory failure secondary to community acquired pneumonia and pharyngitis. He was started empirically on Unasyn 3 gm q8h. Repeat pro-calcitonin today 4.5. His home medications include amlodipine 5 mg by mouth daily, aspirin 81 mg by mouth daily, Toprol-XL 50 mg by mouth daily, started 100 mg by mouth daily and Flomax 0.4 mg by mouth at bedtime. Over the last 24 hours, MAXIMUM TEMPERATURE is 36.4, blood pressure 133/83, pulse 68-89, respiratory rate 16-20, was oximetry 91-95% on 4.5-12 L nasal cannula and oxygen mask. Last pulse oximetry was 92% on 4.5 L/m of humidified oxygen. Historian: patient Onset: yesterday Review of Systems Constitutional: reports: as stated in HPI Eyes: reports: as stated in HPI ENT: reports: as stated in HPI Cardiovascular: reports: as stated in HPI Respiratory: reports: as stated in HPI Gastrointestinal: reports: as stated in HPI Genitourinary - Male: reports: as stated in HPI Musculoskeletal: reports: as stated in HPI Integumentary: reports: as stated in HPI Neurologic: reports: as stated in HPI Psychiatric: reports: as stated in HPI Endocrine: as stated in HPI Hematologic / Lymphatic: as stated in HPI All Other Symptoms All Other Systems: Reviewed and Negative Past Medical History Past Medical History: COPD (FEV1 unknown) Hypertension BPH Social History Smoking Status: Former Smoker Occupational Status: retired Allergies Coded Allergies: BEE STING (Unverified Allergy, Unknown, SWELLING, 06/17/17) Current Medications Reported Home Medications Medications Dose Route/Sig Max Daily Dose Days Date Category Cozaar (Losartan Potassium) 100 Mg Tab 100 Mg PO DAILY 06/17/17 Reported Toprol-Xl (Metoprolol Succinate) 50 Mg Tabcr 50 Mg PO DAILY 06/17/17 Reported Aspirin Ec (Aspirin) 81 Mg Tab 81 Mg PO DAILY 06/17/17 Reported Norvasc (Amlodipine Besylate) 5 Mg Tab 5 Mg PO DAILY 06/17/17 Reported Flomax (Tamsulosin Hcl) 0.4 Mg Cap 0.4 Mg PO HS 06/17/17 Reported Physical Physical Exam Vital Signs: Date Time Temp Pulse Resp B/P (MAP) Pulse Ox O2 Delivery O2 Flow Rate FiO2 06/18/17 13:06 92 Humidified Oxygen 4.5 06/18/17 12:15 94 Humidified Oxygen 5.0 06/18/17 11:27 68 16 91 Nasal Cannula 5.0 06/18/17 10:14 93 Humidified Oxygen 5.0 06/18/17 08:00 95 Humidified Oxygen 6.0 06/18/17 07:47 93 Humidified Oxygen 12.0 Free Flow/Blowby 06/18/17 07:31 80 16 91 Room Air 06/18/17 07:07 36.4 89 20 133/83 (100) 91 06/18/17 03:19 82 16 92 Mask 12.0 50 06/17/17 23:30 Humidified Oxygen 50 Free Flow/Blowby 06/17/17 22:44 36.8 68 20 109/73 (85) 92 Room Air 06/17/17 22:43 67 18 94 Free Flow/Blowby 50 06/17/17 21:58 91 Free Flow/Blowby 40 06/17/17 21:20 Free Flow/Blowby 40 06/17/17 20:07 77 18 94 Free Flow/Blowby 6.0 35 06/17/17 17:55 36.6 80 20 109/77 94 Mask 9.0 06/17/17 17:25 87 24 116/90 92 Humidified Oxygen 9.0 Mask 06/17/17 16:30 85 105/81 89 Humidified Oxygen 9.0 06/17/17 14:59 86 Room Air 06/17/17 14:30 90 23 131/99 92 9.0 General Appearance: WELL-APPEARING, WD/WN, NO APPARENT DISTRESS Head: NORMOCEPHALIC, ATRAUMATIC Eyes: PERRLA, NO DISCHARGE, EOMI, SCLERAE NORMAL ENT: pharynx erythematous, other (Mallampatti IV) Neck: NO TENDERNESS, TRACHEA MIDLINE, NO STRIDOR, SUPPLE Respiratory: BREATH SOUNDS NORMAL, CLEAR TO AUSCULTATION, NO TENDERNESS, accessory muscle use Cardiovasular: REGULAR RATE/RHYTHM, NORMAL S1S2, NO M/G/R Abdomen: NON TENDER, NORMAL BOWEL SOUNDS (obese) Upper Extremities: NO EDEMA, NO DEFORMITY, NORMAL ROM, other (no cyanosis, no clubbing) Lower Extremities: other (trace lower extremity edema, chronic venous changes) Pulses: dorsalis pedis (R) (2+), dorsalis pedis (L) (2+) Neuro: ALERT, ORIENTED x 3, NORMAL MOTOR EXAM Psychiatric: NORMAL AFFECT, NO SUICIDAL IDEATION, CONTRACTS FOR SAFETY Diagnostics Labs Results Past 24 Hours Test 06/18/17 07:37 06/18/17 10:41 Range/Units White Blood Count 10.88 4.8-10.8 K/uL Red Blood Count 5.30 4.7-6.1 M/uL Hemoglobin 16.6 14.0-18.0 g/dL Hematocrit 50.0 42-52 % Mean Corpuscular Volume 94.3 80-100 fL Mean Corpuscular Hemoglobin 31.3 25-34 pg Mean Corpuscular Hemoglobin Concent 33.2 32-36 g/dl RDW Standard Deviation 46.1 36.4-46.3 fL RDW Coefficient of Variation 13.4 11.5-14.5 % Platelet Count 138 130-400 K/uL Mean Platelet Volume 9.7 7.4-10.4 fL Sodium Level 138 136-145 mmol/L Potassium Level 4.0 3.5-5.1 mmol/L Chloride Level 102 98-107 mmol/L Carbon Dioxide Level 24 21-32 mmol/L Anion Gap 12.0 3-11 mmol/L Blood Urea Nitrogen 32 7-18 mg/dl Creatinine 1.67 0.60-1.40 mg/dl Est Creatinine Clear Calc Drug Dose 49.3 ml/min Estimated GFR () 46.0 Estimated GFR (Non- 39.7 BUN/Creatinine Ratio 19.3 10-20 Random Glucose 181 70-99 mg/dl Calcium Level 8.6 8.5-10.1 mg/dl Procalcitonin 4.51 0-0.5 ng/ml Diagnostic Radiology CT ANGIOGRAM OF THE CHEST 06/17/2017 CLINICAL HISTORY: Shortness of breath and elevated d-dimer COMPARISON STUDY: Chest x-ray dated 06/17/2017 TECHNIQUE: Following the IV administration of 94 mL of Optiray-320, CT angiogram of the thorax was performed from the thoracic inlet to the lung bases utilizing the pulmonary embolus protocol. Images are reviewed in the axial, sagittal, and coronal planes. IV contrast was administered without complication. MIP imaging was performed. A dose lowering technique was utilized adhering to the principles of ALARA. CT DOSE: 552.31 mGy.cm FINDINGS: No pathologically enlarged axillary mediastinal or hilar lymph nodes were visualized. There was no evidence of thoracic aortic dilatation. The heart is mildly enlarged with coronary artery calcifications There were no pulmonary artery filling defects to indicate acute pulmonary embolism. No pleural effusions are visualized. There is pulmonary emphysema. There is underlying interstitial lung disease with subpleural reticulation. There is equivocal early honeycombing. There is a 1 cm solid nodule within the right upper lobe. There is an 8 mm solid nodule within the left lower lobe. IMPRESSION: 1. No evidence of acute pulmonary embolism 2. Emphysema. 3. Interstitial lung disease with subpleural reticulation and equivocal early honeycombing 4. Solid 1 cm right upper lobe pulmonary nodule, and solid 8 mm left lower lobe pulmonary nodule. 3-[address] follow-up is recommended. CHEST 2 VIEWS ROUTINE 06/17/2017 CLINICAL HISTORY: Shortness of breath COMPARISON STUDY: None FINDINGS: The heart is mildly enlarged. There is aortic tortuosity/ectasia. There is no lobar consolidation. There is interstitial thickening, a finding of uncertain chronicity. There are no significant pleural effusions.[ IMPRESSION: 1. Mild cardiomegaly 2. Aortic tortuosity/ectasia 3. Interstitial thickening, a finding of uncertain chronicity EKG EKG from 06/17/2017 Ventricular rate of 81 bpm, normal sinus rhythm. Left axis deviation. Minimal voltage criteria for LVH. Abnormal EKG. No previous EKGs available for comparison. Impression Assessment and Plan Acute hypoxic respiratory failure Pharyngis/Uvulitis COPD with possible exacerbation secondary to pneumonia Interstitial lung disease Pulmonary nodules Renal insufficiency Mr. Fontenot has acute hypoxic respiratory failure in the with dyspnea and pharyngitis. It appears that he may have had some upper airway obstruction that resolved with administration of antihistamines and racemic epinephrine. CT chest is negative for pulmonary embolism however shows emphysematous changes with underlying interstitial lung disease with early signs of pulmonary fibrosis , in the setting of renal insufficiency. Etiology of renal disease and chronicity unknown. Of note there also to solid pulmonary nodules in the right upper lobe and lower lobe respectively. With patient's history of previous making this is concerning. Recommendations Continue supplemental oxygen to keep an SaO2 between above 92%. Patient doesn' t have any signs of CO2 retention with compensation an elevated carbon dioxide level and chemistry. Pro-calcitonin elevation is suggestive of underlying bacterial infection. Therefore I would recommend continued treatment with antibiotics to cover community acquired pneumonia, atypical bacteria as well as anaerobic bacteria. Blood cultures are still pending, follow-up. Swab of oral pharynx for bacterial culture. Consider CT of neck as well to evaluate upper airway. Continue with Benadryl, racemic epinephrine as needed. Patient does have underlying emphysematous changes suggestive of COPD. He appears to be a good functional baseline status prior to this. Not on any bronchodilators or inhaled corticosteroids. Recommend for PFT as outpatient. Continue to treat with short course of systemic corticosteroids while inpatient and taper as tolerated. Patient also has underlying interstitial lung disease, etiology unknown. There are signs of mild honeycombing at the periphery. I'll send a full workup for connective tissue disease including rheumatoid factor, AGA, ANCA, complement. I would place patient on PPI for possible gastric reflux and send for a video swallow evaluation to rule out aspiration. Due to patient's hypoxemia and Mallampati IV, with pharyngeal edema. I do not feel that he will be a good candidate for bronchoscopic evaluation. If he should improve, with decreased O2 requirements he may benefit at a later time. Also recommend obtaining baseline TTE to evaluate for pulmonary hypertension. Due to body habitus CO2 he may also have a component of obstructive sleep apnea and obesity hypoventilation syndrome. Nocturnal oximetry has been ordered. He may benefit from polysomnography as an outpatient. Pulmonary nodules--should be followed closely as he is high risk patient with history of previous tobacco use. Recommend repeat CT chest in 3 months to further evaluate for interval resolution. Continue with DVT prophylaxis. I appreciate the consult.
[2017-06-18] MEDS: TAMSULOSIN HCL 0.4 MG CAP PO SCH (21:39)
[2017-06-19] VITALS (8 sets, daily range): BP systolic 132; BP diastolic 73; PULSE 54–64; TEMP 36.6; O2SAT 90–93
[2017-06-19] MEDS: SODIUM CHLORIDE 0.9% 1000ML 1,000 ML IV SCH (00:43)
[2017-06-19] MEDS: AMPICILLIN/SULBACTAM SOD INJ 3,000 MG in SODIUM CHLORIDE 0.9% 100ML 100 ML IV SCH ×3 (02:12→13:48)
[2017-06-19] MEDS: ALBUT/IPRATROP 3MG/0.5MG NEB 3 ML VIAL INH SCH ×4 (02:57→15:44)
[2017-06-19] MEDS: METHYLPREDNISOLONE IV 20 MG in SYRINGE 0 ML IV SCH (05:56)
[2017-06-19] MEDS: HEPARIN SOD 5000 UNIT/0.5 ML CARP SQ SCH ×2 (05:57→13:54)
[2017-06-19] MEDS: METOPROLOL SUCC 50MG EXT REL TAB PO SCH (08:11)
[2017-06-19] MEDS: ASPIRIN 81 MG ECTAB PO SCH (08:13)
[2017-06-19] MEDS: AMLODIPINE BESYLATE 5 MG TAB PO SCH (08:13)
[2017-06-19 09:16] LABS: C-REACTIVE PROTEIN 3.39 mg/dl (0-0.29); CALCIUM 8.6 mg/dl (8.5-10.1); CREATININE 1.29 mg/dl (0.60-1.40); POTASSIUM 4.2 mmol/L (3.5-5.1)
--- NOTE | 2017-06-19 10:11 | ECHOCARDIOGRAM REPORT ---
*NOTICE TO RECEIVING REPUBLICAN AGENCY This information is strictly Confidential and protected under [place] law. [place] law prohibits you from making any further disclosure of this information unless further disclosure is expressly permitted by the written consent of the person to whom it pertains or is authorized by law. A general authorization for the release of medical or other information is not sufficient for this purpose. Hospital accepts no responsibility if the information is made available to any other person, INCLUDING THE PATIENT. Interpretation Summary * Name: LENNIE STEINER Study Date: 06/19/2017 07:33 AM BP: 115/84 mmHg * Patient Location: .[id number]\W451\S\2 HR: 58 * : 1940 (M/d/yyy) Gender: Male Height: 70 in * Age: 76 yrs Ethnicity: CA Weight: 253 lb * Ordering Physician: Marifer Rosas * Referring Physician: Self, Referred * Performed By: Naye Ruvalcaba RCS * * Reason For Study: PULMONARY HTN * BSA: 2.3 m2 * -- Conclusions -- * There is mild concentric left ventricular hypertrophy. * Left ventricular systolic function is normal. * There is mild right ventricular hypertrophy. * Mild to moderate aortic regurgitation. * Right ventricular systolic pressure is elevated at 30-40mmHg. Procedure Details * A complete two-dimensional transthoracic echocardiogram was performed (2D, M-mode, Doppler and color flow Doppler). Left Ventricle * The left ventricle is normal in size. * There is mild concentric left ventricular hypertrophy. * Left ventricular systolic function is normal. * Diastolic function not well characterized * The left ventricular wall motion is normal. Right Ventricle * The right ventricle is not well visualized. * There is mild right ventricular hypertrophy. * The right ventricular systolic function is normal. Atria * The left atrial size is normal. * Right atrial size is normal. Mitral Valve * The mitral valve is grossly normal. * Significant mitral regurgitation is absent. Tricuspid Valve * The tricuspid valve is not well visualized. * There is trace tricuspid regurgitation. * Right ventricular systolic pressure is elevated at 30-40mmHg. Aortic Valve * The aortic valve is not well visualized. * No hemodynamically significant valvular aortic stenosis. * Mild to moderate aortic regurgitation. Great Vessels * The aortic root is normal size. Pericardium/Pleural * There is no pericardial effusion. MMode 2D Measurements and Calculations IVSd 1.9 cm IVSs 2.6 cm LVIDd 4.9 cm LVIDs 3.5 cm LVPWd 1.7 cm LVPWs 2.0 cm IVS/LVPW 1.1 FS 28.4 % EDV(Teich) 114.1 ml ESV(Teich) 51.8 ml EF(Teich) 54.6 % EDV(cubed) 119.4 ml ESV(cubed) 43.9 ml EF(cubed) 63.2 % % IVS thick 37.8 % % LVPW thick 16.9 % LV mass(C)d 422.6 grams LV mass(C)dI 183.2 grams/m\S\2 LV mass(C)s 418.1 grams LV mass(C)sI 181.2 grams/m\S\2 SV(Teich) 62.3 ml SI(Teich) 27.0 ml/m\S\2 SV(cubed) 75.5 ml SI(cubed) 32.7 ml/m\S\2 Ao root diam 3.8 cm Ao root area 11.6 cm\S\2 ACS 2.8 cm LA dimension 3.4 cm LA/Ao 0.88 LVOT diam 2.1 cm LVOT area 3.5 cm\S\2 LVAd ap4 37.0 cm\S\2 LVLd ap4 8.7 cm EDV(MOD-sp4) 129.3 ml EDV(sp4-el) 134.3 ml LVAs ap4 24.6 cm\S\2 LVLs ap4 7.8 cm ESV(MOD-sp4) 66.1 ml ESV(sp4-el) 66.1 ml EF(MOD-sp4) 48.9 % EF(sp4-el) 50.8 % LVAd ap2 41.2 cm\S\2 LVLd ap2 9.1 cm EDV(MOD-sp2) 150.2 ml EDV(sp2-el) 158.3 ml LVAs ap2 24.9 cm\S\2 LVLs ap2 7.6 cm ESV(MOD-sp2) 66.8 ml ESV(sp2-el) 69.4 ml EF(MOD-sp2) 55.6 % EF(sp2-el) 56.2 % LVLd %diff 4.7 % EDV(MOD-bp) 142.9 ml LVLs %diff -2.96 % ESV(MOD-bp) 66.1 ml EF(MOD-bp) 53.7 % SV(MOD-sp4) 63.2 ml SI(MOD-sp4) 27.4 ml/m\S\2 SV(MOD-sp2) 83.5 ml SI(MOD-sp2) 36.2 ml/m\S\2 SV(MOD-bp) 76.8 ml SI(MOD-bp) 33.3 ml/m\S\2 SV(sp4-el) 68.2 ml SI(sp4-el) 29.6 ml/m\S\2 SV(sp2-el) 88.9 ml SI(sp2-el) 38.6 ml/m\S\2 Doppler Measurements and Calculations MV E max tosha 106.8 cm/sec MV A max tosha 77.6 cm/sec MV E/A 1.4 MV P1/2t max tosha 119.1 cm/sec MV P1/2t 90.9 msec MVA(P1/2t) 2.4 cm\S\2 MV dec slope 383.8 cm/sec\S\2 MV dec time 0.20 sec Ao V2 max 147.1 cm/sec Ao max PG 8.7 mmHg Ao max PG (full) 3.4 mmHg RAJESH(V,A) 2.7 cm\S\2 RAJESH(V,D) 2.7 cm\S\2 AI max tosha 370.8 cm/sec AI max PG 55.4 mmHg AI dec slope 160.2 cm/sec\S\2 AI P1/2t 678.1 msec LV V1 max PG 5.2 mmHg LV V1 max 114.4 cm/sec PA V2 max 91.5 cm/sec PA max PG 3.3 mmHg TR max tosha 251.9 cm/sec
--- NOTE | 2017-06-19 14:49 | Progress Note ---
Medicine Progress Note Date & Time of Visit: Jun 19, 2017 at 14:46. Subjective Pt was seen and examined Lying in bed with no distress Pt said that he feels much better today His breathing improved significantly Denies any chest pain, palpitation, dizziness and SOB Objective Last 8 Hrs Date Time Temp Pulse Resp B/P (MAP) Pulse Ox O2 Delivery O2 Flow Rate FiO2 06/19/17 11:46 54 18 93 Room Air 06/19/17 08:11 64 06/19/17 08:00 91 Nasal Cannula 3.0 06/19/17 07:40 56 16 90 Room Air 06/19/17 07:30 36.6 54 20 132/73 (92) 90 Nasal Cannula 3.0 06/19/17 07:17 56 18 90 Room Air Physical Exam: General- No acute distress Head- atraumatic Eyes- PERRL, EOMI ENT- Uvula swelling and mild erythematous Neck- supple, no JVD Lungs- clear to auscultation Heart- regular rhythm; no murmur Abdomen- normal bowel sounds, soft, Extremities-No calf tenderness Neuro- alert, oriented x 3; PERRL, EOMI; no facial palsy; Skin- warm & dry Laboratory Results: Last 24 Hours Test 06/19/17 08:09 06/19/17 08:20 Erythrocyte Sedimentation Rate 41 mm/hr Sodium Level 139 mmol/L Potassium Level 4.2 mmol/L Chloride Level 105 mmol/L Carbon Dioxide Level 27 mmol/L Anion Gap 7.0 mmol/L Blood Urea Nitrogen 26 mg/dl Creatinine 1.29 mg/dl Est Creatinine Clear Calc Drug Dose 63.8 ml/min Estimated GFR () 62.9 Estimated GFR (Non- 54.3 BUN/Creatinine Ratio 20.0 Random Glucose 136 mg/dl Calcium Level 8.6 mg/dl C-Reactive Protein 3.39 mg/dl Assessment & Plan Worsening Dyspnea Pharyngitis Uvulitis Present with shortness of breath associated with chills and shaking Afebrile, no leukocytosis Received solumedrol/ IV benadryl/ duoneb and epinephrine in the ER Elevated Procalcitonin lactic acid normal Continue required 4L supplement oxygen to keep sat above 93% Blood cx pending Continue Unasyn 3g q6h Called PCP office his last oxygen sat was 96RA on his last office visit in 03/15 No hx of COPD from clinic chart Will get an overnight pulse oximetry Pulmonology consult- pending 06/19 Clinically improved significantly Will discharge on Augmentin for 7 days. Solumedrol changed to prednisone 20mg daily Overnight pulse oximetry suggests pt requires oxygen during sleep 2 step done today suggests pt require oxygen with activity Will need an overnight sleep study outpatient case discussed with yeast culture developer Dr. Rosas recommended to start on Symbicort and spiriva (advised pt to rinse his mouth after using the symbicort) manager travel checked for Spiriva, the copay was $220, Symbicort ( $60), Anoro ( 224) Will do Symbicort for now. When seen his PCP, they can trying to do a prior auth or check which anticholinergic his insurance will cover. Will need outpatient PFT test [facility] RONNY Creatine on admission was 1.6 Called PCP his last creatine was 1.2 on 03/15 Possible related to dehydration since pt has not been eating or drink much Creatine today 1.2 D/C Continue IVF Resume losartan on admission monitor BMP HTN On Norvasc, metoprolol Resume losartan on discharge Monitor BP Stable BPH Continue flomax Diet Continue Full liquid diet due to the sore throat DVT px on heparin subq CODE STATUS FULL CODE Disposition Advised pt to call his PCP to schedule a follow up appointment Continue oxygen supplement with activity and during sleep Follow up with [place] [facility]: Pulmonology Current Inpatient Medications: Current Inpatient Medications Medications (Trade) Dose Ordered Sig/Shine Route Start Time Stop Time Status Last Admin Dose Admin Ioversol (Optiray 320) 125 ml UD PRN IV 06/17/17 13:30 06/21/17 13:29 Heparin Sodium (Porcine) (Heparin Sq 5000 Unit/0.5ml) 5,000 unit Q8 SQ 06/17/17 22:00 07/17/17 21:59 Amlodipine Besylate (Norvasc Tab) 5 mg DAILY PO 06/18/17 08:00 07/18/17 08:59 06/19/17 08:13 5 MG Aspirin (Ecotrin Tab) 81 mg DAILY PO 06/18/17 08:00 07/18/17 08:59 06/19/17 08:13 81 MG Metoprolol Succinate (Toprol Xl Tab) 50 mg DAILY PO 06/18/17 08:00 07/18/17 08:59 06/19/17 08:11 50 MG Tamsulosin HCl (Flomax Cap) 0.4 mg HS PO 06/17/17 22:00 07/17/17 21:59 06/18/17 21:39 0.4 MG Albuterol/ Ipratropium (Duoneb) 3 ml Q4R INH 06/17/17 20:00 07/17/17 19:59 06/19/17 11:46 3 ML Miscellaneous (Iv Fluids Completed) 1 ea PRN PRN N/A 06/17/17 17:00 06/17/18 16:59 06/19/17 08:20 1 EA Ampicillin Sodium/ Sulbactam Sodium 3000 mg/Sodium Chloride 108 ml @ 200 mls/hr Q6H IV 06/17/17 18:00 06/27/17 17:59 06/19/17 13:48 200 MLS/HR Prednisone (PredniSONE TAB) 20 mg BID PO 06/19/17 20:00 07/19/17 19:59
[2017-06-19] MEDS ORDERED: PRD20 PO (14:54)
[2017-06-19] MEDS ORDERED: SPRIN/30 INH (14:54)
[2017-06-19] MEDS ORDERED: AMOX875T PO (14:54)
[2017-06-19] MEDS ORDERED: SYMIN160 INH (14:54)
--- NOTE | 2017-06-19 15:05 | Discharge Instructions ---
Discharge Instructions Date of Service Jun 19, 2017. Admission Reason for Admission: Dyspnea Discharge Discharge Diagnosis / Problem: Dyspnea/Pharyngitis/Uvulitis/Acute Kidney Injury Discharge Goals Goal(s): Decrease discomfort, Increase independence, Improve disease control Activity Recommendations Activity Limitations: resume your previous activity (as tolerated) . Instructions / Follow-Up Instructions / Follow-Up Please call to schedule a follow up appointment with your primary care provider within 1 week Call to schedule a follow up appointment with [facility] pulmonology @ Continue oxygen supplement with exertion and at night (Sleeping) Complete the course of antibiotic with Augmentin Continue prednisone for 3 more days Starting on Symbicort ( Anoro or Spiriva was too expensive, cost was about 220) Please rinse your mouth after finishing using the Symbicort Monitor renal function Current Hospital Diet Patient's current hospital diet: AHA Diet (Heart Healthy) Discharge Diet Recommended Diet: AHA Diet (Heart Healthy) Pending Studies Studies pending at discharge: no Medical Emergencies . Who to Call and When: Medical Emergencies: If at any time you feel your situation is an emergency, please call 911 immediately. . Non-Emergent Contact Non-Emergency issues call your: Primary Care Provider Call Non-Emergent contact if: you have any medication questions . . "Provider Documentation" section prepared by Jamal Rizzo. . VTE Core Measure Inpt VTE Proph given/why not?: Unfractionated heparin SQ
== END 2017-06-19 16:15 | disposition home or self-care (01) ==
LOC: C.EDB 08:32 → C.MS4W 16:13 → ENRESERV 17:01
PROVIDERS: ADMIT Internal Medicine; ATTEND Internal Medicine
DX: J96.01 Acute respiratory failure with hypoxia (principal); J02.9 Acute pharyngitis, unspecified; K12.2 Cellulitis and abscess of mouth; J44.1 Chronic obstructive pulmonary disease with (acute) exacerbation; J84.9 Interstitial pulmonary disease, unspecified; R91.8 Other nonspecific abnormal finding of lung field; N17.9 Acute kidney failure, unspecified; I10 Essential (primary) hypertension; N40.0 Benign prostatic hyperplasia without lower urinary tract symptoms; Z87.891 Personal history of nicotine dependence; Z79.82 Long term (current) use of aspirin; Z79.899 Other long term (current) drug therapy

== ENCOUNTER → 2017-07-11 | Outpatient (CLI) | payer OTHER ==
[~2017-07-11] MED LIST: AMLO-110 PO; ASPI81TA28 PO; LOSA100T65 PO; METO50TA7 PO; PRD20 PO; SYMIN160 INH; TAMS0.4C38 PO
[2017-07-11 17:38] LABS: LYME DISEASE AB IGM NEG (NEG)
[2017-07-11 17:39] LABS: LYME DISEASE AB IGG NEG (NEG)
== END | disposition home or self-care (01) ==
LOC: C.LAB1850 15:44
PROVIDERS: ATTEND Physician Assistant
DX: J84.9 Interstitial pulmonary disease, unspecified (principal)

== ENCOUNTER → 2017-08-29 | Outpatient (CLI) | payer OTHER ==
[~2017-08-29] MED LIST changes: -SYMIN160 INH
[2017-08-29 12:20] LABS: BASO % 0.5 %; BASO ABS # 0.05 K/uL (0-0.2); EOS % 2.6 %; EOS ABS # 0.24 K/uL (0-0.5); HEMOGLOBIN 17.1 g/dL (14.0-18.0); IG# 0.05 K/uL (0.00-0.02); LYMPH % 15.2 %; LYMPH ABS # 1.39 K/uL (1.2-3.4); MEAN CELL VOLUME 92.9 fL (80-100); MEAN CORPUSCULAR HEMOGLOBIN 31.1 pg (25-34); MEAN CORPUSCULAR HGB CONC 33.5 g/dl (32-36); MONO % 8.9 %; MONO ABS # 0.82 K/uL (0.11-0.59); NEUT % 72.3 %; NEUT ABS # 6.62 K/uL (1.4-6.5); PLATELET COUNT 181 K/uL (130-400); RED CELL DISTRIBUTION WIDTH CV 13.4 % (11.5-14.5); RED CELL DISTRIBUTION WIDTH SD 45.6 fL (36.4-46.3); WHITE BLOOD COUNT 9.17 K/uL (4.8-10.8)
[2017-08-29 12:55] LABS: CREATININE 1.22 mg/dl (0.60-1.40)
== END | disposition home or self-care (01) ==
LOC: C.LAB1850 10:53
PROVIDERS: ATTEND Internal Medicine Rheumatology
DX: J84.9 Interstitial pulmonary disease, unspecified (principal); R76.8 Other specified abnormal immunological findings in serum

== ENCOUNTER → 2017-09-11 | Outpatient (CLI) | payer OTHER ==
[~2017-09-11] MED LIST changes: -METO50TA7 PO; +METO50TA8 PO
== END | disposition home or self-care (01) ==
LOC: C.LAB1850 14:23
PROVIDERS: ATTEND Internal Medicine Rheumatology
DX: J84.9 Interstitial pulmonary disease, unspecified (principal); R76.8 Other specified abnormal immunological findings in serum

== ENCOUNTER → 2017-09-18 | Outpatient (CLI) | payer OTHER ==
--- NOTE | 2017-09-18 09:27 | DIAGNOSTIC IMAGING REPORT ---
(CHEST) THORAX WITHOUT CLINICAL HISTORY: PULMONARY NODULE COMPARISON STUDY: 06/17/2017 CT DOSE: 698.99 mGycm TECHNIQUE: CT of the thorax was performed from the thoracic inlet to the lung bases. Images are reviewed in the axial, sagittal, and coronal planes. IV contrast was not administered for this examination. A dose lowering technique was utilized adhering to the principles of ALARA. FINDINGS: Thyroid: Imaged portions of the thyroid gland are normal in appearance. Thoracic aorta: There is mild ectasia of the ascending thoracic aorta which measures 39 mm in diameter Heart: There are coronary artery calcifications present. The heart is mildly enlarged. Lungs and pleural spaces: There are no pleural effusions. There is pulmonary emphysema. There is subpleural reticulation with areas of honeycombing. The previously identified 1 cm right upper lobe point nodule has resolved. The presented identified 8 mm left lower lobe point nodule has resolved. Mediastinum: There is no mediastinal lymphadenopathy. [place]: Clear. Axilla: Clear. Upper abdomen: Partially visualized upper abdominal viscera is within normal limits. Skeletal structures: There are no lytic or blastic osseous lesions. IMPRESSION: 1. The previous identified 1 cm right upper lobe and 8 mm left lower lobe pulmonary nodules have resolved 2. Interstitial lung disease with subpleural reticulation and honeycombing 3. Emphysema Electronically signed by: William Mcadams M.D. 09/18/2017 9:26 AM Dictated Date/Time: 09/18/2017 9:21 AM
== END | disposition home or self-care (01) ==
LOC: C.CTS 09:00
PROVIDERS: ATTEND Physician Assistant
DX: J43.9 Emphysema, unspecified (principal); J84.9 Interstitial pulmonary disease, unspecified; R91.1 Solitary pulmonary nodule

== ENCOUNTER → 2017-12-05 | Outpatient (CLI) | payer OTHER ==
[~2017-12-05] MED LIST changes: +AUGMENTIN PO; +FLUT1INH INH; +OXGN; +PRD/1 PO; +SPIRIVA INH; +VNTHFA/IN INH
--- NOTE | 2017-12-05 10:24 | DIAGNOSTIC IMAGING REPORT ---
CHEST 2 VIEWS ROUTINE HISTORY: 77 years-old Male COUGH preoperative exam. Acute cough. COMPARISON: Chest radiograph 06/17/2017, CT chest 09/18/2017 TECHNIQUE: PA and lateral views of the chest FINDINGS: Cardiac silhouette is enlarged, unchanged. Atherosclerosis and tortuosity of the aorta. No pneumothorax or large pleural effusion. No overt pulmonary edema. The lungs are hyperinflated with advanced emphysema and chronic reticular scarring. There are progressively worsened alveolar opacities about the left lung base. Multilevel degenerative changes about the spine and shoulders. IMPRESSION: 1. Cardiomegaly without overt pulmonary edema. 2. Advanced emphysema with chronic reticular scarring. Progressive opacities about the left lung base suggest atelectasis or pneumonitis. The above report was generated using voice recognition software. It may contain grammatical, syntax or spelling errors. Electronically signed by: Garfield Lujan M.D. 12/05/2017 10:23 AM Dictated Date/Time: 12/05/2017 10:17 AM
== END | disposition home or self-care (01) ==
LOC: C.RAD 09:06
PROVIDERS: ATTEND Physician Assistant
DX: R05 Cough (principal); I51.7 Cardiomegaly; J43.9 Emphysema, unspecified; R91.8 Other nonspecific abnormal finding of lung field

== ENCOUNTER 2017-12-14 05:16 | Inpatient (IN) | payer OTHER ==
[2017-12-05 09:02] VITALS: BMI 35.0
--- NOTE | 2017-12-05 09:38 | PAT Medication Instructions ---
Service Date December 05, 2017. Current Home Medication List Albuterol Hfa (Ventolin Hfa), 2 PUFFS INH Q6H PRN for PRN Amlodipine (Norvasc), 5 MG PO QAM Aspirin (Aspirin Ec), 81 MG PO QAM Fluticasone Furoate-Vilanterol (Breo Ellipta), 1 PUFF INH QAM Home O2 Therapy (Oxygen), 4 LITERS NA CONT Losartan Potassium (Cozaar), 100 MG PO QAM Metoprolol Succ (Toprol Xl) (Toprol-Xl), 50 MG PO QAM Prednisone (Prednisone), 4 MG PO QAM Tamsulosin Hcl (Flomax), 0.4 MG PO QAM [Augmentin], 1 TAB PO BID [Spiriva], 1 PUFF INH QAM Medication Instructions For Your Scheduled Surgery -Continue as directed: Home O2 Therapy (Oxygen), 4 LITERS NA CONT - Hold the following medications the morning of surgery: Losartan Potassium (Cozaar), 100 MG PO QAM - Take the following medications the morning of surgery with a sip of water: Albuterol Hfa (Ventolin Hfa), 2 PUFFS INH Q6H PRN for PRN (if needed, and bring it with you to the hospital) Amlodipine (Norvasc), 5 MG PO QAM Aspirin (Aspirin Ec), 81 MG PO QAM Fluticasone Furoate-Vilanterol (Breo Ellipta), 1 PUFF INH QAM Metoprolol Succ (Toprol Xl) (Toprol-Xl), 50 MG PO QAM Tamsulosin Hcl (Flomax), 0.4 MG PO QAM [Spiriva], 1 PUFF INH QAM Prednisone (Prednisone), 4 MG PO QAM [Augmentin], 1 TAB PO BID - Take the following medications as scheduled the night before surgery: Albuterol Hfa (Ventolin Hfa), 2 PUFFS INH Q6H PRN for PRN (if needed) [Augmentin], 1 TAB PO BID If you have any questions please call us at [phone] or [phone] or [phone]
[2017-12-05 11:06] LABS: BASO % 0.1 %; BASO ABS # 0.01 K/uL (0-0.2); EOS % 0.1 %; EOS ABS # 0.01 K/uL (0-0.5); HEMATOCRIT 48.7 % (42-52); HEMOGLOBIN 16.9 g/dL (14.0-18.0); IG# 0.06 K/uL (0.00-0.02); LYMPH % 5.4 %; LYMPH ABS # 0.63 K/uL (1.2-3.4); MEAN CELL VOLUME 91.4 fL (80-100); MEAN CORPUSCULAR HEMOGLOBIN 31.7 pg (25-34); MEAN CORPUSCULAR HGB CONC 34.7 g/dl (32-36); MEAN PLATELET VOLUME 9.6 fL (7.4-10.4); MONO % 4.2 %; MONO ABS # 0.49 K/uL (0.11-0.59); NEUT % 89.7 %; NEUT ABS # 10.41 K/uL (1.4-6.5); PLATELET COUNT 225 K/uL (130-400); RED CELL DISTRIBUTION WIDTH CV 12.9 % (11.5-14.5); RED CELL DISTRIBUTION WIDTH SD 43.3 fL (36.4-46.3); WHITE BLOOD COUNT 11.61 K/uL (4.8-10.8)
[2017-12-05 11:14] LABS: CALCIUM 8.8 mg/dl (8.5-10.1); CREATININE 1.42 mg/dl (0.60-1.40); POTASSIUM 5.1 mmol/L (3.5-5.1)
[~2017-12-14] VITALS: Ht 180.3 cm; Wt 116.0 kg
[2017-12-14] VITALS (13 sets, daily range): BP systolic 96–147; BP diastolic 62–86; PULSE 57–80; TEMP 36.3–37; O2SAT 89–98; Ht 180.3 cm; Wt 116.0 kg
[~2017-12-14 05:16] MED LIST changes: -PRD20 PO
[2017-12-14] MEDS ORDERED: LACTATED RINGER'S 1000ML 1,000 ML IV SCH (06:00)
--- NOTE | 2017-12-14 06:42 | History & Physical Bridge Note ---
H&P Re-Evaluation Bridge Note: I have examined the patient, reviewed the History & Physical and in the interval since the performance of the History & Physical I have noted the following changes of clinical significance: No changes noted
[2017-12-14] MEDS ORDERED: ONDANSETRON INJ 2 MG/ML 2 ML VIAL ONE (07:00)
[2017-12-14] MEDS ORDERED: SUCCINYLCHOLINE CHLORIDE 20 MG/ML 10 ML VIAL IV ONE (07:00)
[2017-12-14] MEDS ORDERED: PHENYLEPHRINE HCL INJ 10 MG/ML VIAL ONE ×3 (07:00→10:21)
[2017-12-14] MEDS ORDERED: PROPOFOL IV EMULSION 10 MG/ML 20 ML VIAL ONE (07:00)
[2017-12-14] MEDS ORDERED: NEOSTIGMINE METHYLSULFATE 5 MG/5 ML SYR ONE (07:00)
[2017-12-14] MEDS ORDERED: LIDOCAINE HCL 2% 2 ML VIAL (20MG/ML) ONE (07:00)
[2017-12-14] MEDS ORDERED: EpHEDrine SULFATE INJ 50 MG/ML AMP ONE ×2 (07:00→07:51)
[2017-12-14] MEDS ORDERED: DEXAMETHASONE SOD INJ 4 MG/ML VIAL ONE ×2 (07:00→07:44)
[2017-12-14] MEDS ORDERED: GLYCOPYRROLATE INJ 0.2 MG/ML VIAL ONE (07:00)
[2017-12-14] MEDS ORDERED: FENTANYL CITRATE INJ 50 MCG/1 ML 2 ML VIAL ONE (07:01)
[2017-12-14] MEDS ORDERED: BUPIVACAINE LIPOSOME 1/3% 266 MG/20 ML VIAL ONE (07:10)
[2017-12-14] MEDS ORDERED: SODIUM CHLORIDE 0.9% PF 50 ML VIAL ONE ×2 (07:10)
[2017-12-14] MEDS ORDERED: BUPIVACAINE 0.5 % 5 MG/1 ML MPF 30ML VIAL ONE (07:12)
[2017-12-14] MEDS ORDERED: CLINDAMYCIN PHOS 150 MG/ML 2 ML VIAL ONE (07:44)
[2017-12-14] MEDS ORDERED: EpHEDrine SULFATE 50MG/5ML SYR ONE (07:45)
[2017-12-14] MEDS ORDERED: ROCURONIUM BROMIDE 10 MG/ML 5 ML VIAL ONE (09:20)
--- NOTE | 2017-12-14 09:40 | [facility] Post Operative Brief Note ---
Immediate Operative Summary Operative Date December 14, 2017. Pre-Operative Diagnosis Fibrotic changes both lungs Post-Operative Diagnosis Same Procedure(s) Performed Left Video Assisted Thoracoscopy with Lung Biopsy Surgeon Dr Levine Engineering Writer Surgeon(s) Abhilash Samaniego PA-C Estimated Blood Loss 100ml Findings Consistent with Post-Op Diagnosis Specimens Frozen Section #1. Left lingular biopsy Anesthesia Type General
[2017-12-14] MEDS ORDERED: ALBUTEROL HFA 8 GM INHALER INH PRN (10:00)
[2017-12-14] MEDS ORDERED: ONDANSETRON INJ 2 MG/ML 2 ML VIAL IV PRN ×2 (10:00→11:15)
[2017-12-14] MEDS ORDERED: MoRPHine SULFATE 4 MG/ML 1 ML CARP\\VIAL IV PRN (10:00)
[2017-12-14] MEDS ORDERED: OXYCODONE HCL IR 5 MG TAB (IMMEDIATE RELEASE) PO PRN (10:00)
[2017-12-14] MEDS ORDERED: METOCLOPRAMIDE HCL INJ 5 MG/ML 2 ML VIAL ONE (10:18)
[2017-12-14] MEDS ORDERED: METOCLOPRAMIDE HCL INJ 5 MG/ML 2 ML VIAL IV. STA (10:21)
--- NOTE | 2017-12-14 10:27 | DIAGNOSTIC IMAGING REPORT ---
CHEST ONE VIEW PORTABLE HISTORY: 77 years-old Male left wedge resection status post left lung wedge resection COMPARISON: Chest radiograph 12/05/2017, chest CT 09/18/2017 TECHNIQUE: Portable AP view of the chest FINDINGS: Cardiac silhouette is enlarged, unchanged. Atherosclerosis of the aorta. Lung apices are partially obscured by the patient's chin. The lungs are hypoinflated with bibasilar opacities. Left-sided chest tube projects adjacent to the left lung apex. Small left-sided pneumothorax with pleural separation of approximately 2.4 cm moderate amount of subcutaneous emphysema about the lateral left chest wall. IMPRESSION: 1. Left-sided chest tube projects adjacent left lung apex. Small left apical pneumothorax. 2. Chronic interstitial lung disease with hypoinflation and bibasilar opacities suggesting atelectasis. 3. Cardiomegaly. The above report was generated using voice recognition software. It may contain grammatical, syntax or spelling errors. Electronically signed by: Garfield Lujan M.D. 12/14/2017 10:26 AM Dictated Date/Time: 12/14/2017 10:24 AM
--- NOTE | 2017-12-14 11:05 | Anesthesiology Progress Note ---
Anesthesia Post Op Note Date & Time December 14, 2017 at 11:04 Vital Signs Pain Intensity: 0 Vital Signs Past 12 Hours Date Time Temp Pulse Resp B/P (MAP) Pulse Ox O2 Delivery O2 Flow Rate FiO2 12/14/17 11:00 36.1 54 18 120/68 91 Nasal Cannula 4 12/14/17 10:50 36.1 55 16 114/64 91 Nasal Cannula 4 12/14/17 10:40 53 16 110/60 96 Nasal Cannula 4 12/14/17 10:30 55 16 115/65 96 Oxymask 10 12/14/17 10:25 57 20 98 Mask 15.0 12/14/17 10:20 36. 55 16 117/63 96 Oxymask 10 12/14/17 10:10 36. 75 16 110/55 96 Oxymask 10 12/14/17 06:01 37 58 20 129/79 (96) 93 Nasal Cannula 4 Notes Mental Status: alert / awake / arousable, participated in evaluation Pt Amnestic to Procedure: Yes Nausea / Vomiting: adequately controlled Pain: adequately controlled Airway Patency, RR, SpO2: stable & adequate, see Notes BP & HR: stable & adequate Hydration State: stable & adequate Anesthetic Complications: no major complications apparent The patient is awake and stable. He was given a Duoneb in the PACU. His SpO2 is at his baseline in the 90s. All other vital signs are stable and he is comfortable. He will have continuous pulse oximetry monitoring on the floor.
[2017-12-14] MEDS ORDERED: FLUMAZENIL 0.1 MG/1 ML 10 ML VIAL IV PRN (11:15)
[2017-12-14] MEDS ORDERED: HYDROmorphone INJ 0.5 MG/0.5 ML SYR IV PRN (11:15)
[2017-12-14] MEDS ORDERED: ATROPINE SULFATE 0.1 MG/ML 5ML SYR IV PRN (11:15)
[2017-12-14] MEDS ORDERED: ALBUT/IPRATROP 3MG/0.5MG NEB 3 ML VIAL INH ONE (11:15)
[2017-12-14] MEDS ORDERED: LABETALOL HCL IV 5 MG/ML 20ML IV PRN (11:15)
[2017-12-14] MEDS ORDERED: PHENYLEPHRINE 100MCG/ML 5ML SYR IV PRN (11:15)
[2017-12-14] MEDS ORDERED: NALOXONE HCL 0.4 MG/1 ML VIAL/CARP IV PRN (11:15)
[2017-12-14] MEDS ORDERED: MEPERIDINE HCL 25 MG/ML CARP IV PRN (11:15)
[2017-12-14] MEDS ORDERED: EpHEDrine SULFATE INJ 50 MG/ML AMP IV PRN (11:15)
[2017-12-14] MEDS ORDERED: FENTANYL CITRATE INJ 50 MCG/1 ML 2 ML VIAL IV PRN (11:15)
[2017-12-14] MEDS ORDERED: D5W AND 1/2NSS 1,000 ML IV SCH (12:50)
--- NOTE | 2017-12-14 13:02 | OPERATIVE REPORT ---
DATE OF OPERATION: 12/14/2017 PREOPERATIVE DIAGNOSIS: Pulmonary infiltrates, unknown etiology with hypoxia. POSTOPERATIVE DIAGNOSIS: Pulmonary infiltrates, unknown etiology with hypoxia. PROCEDURE PERFORMED: 1, Left thoracoscopy with extensive lysis of adhesions. 2. Wedge resection lingula. SURGEON: Santana Levine MD TUBE REBUILDER: SAWYER Moise (Mr. Samaniego present during entire case. He held the camera, butcher's assistant and closed the skin incisions at the conclusion). ANESTHESIA: General anesthesia endotracheal intubation. INDICATION FOR PROCEDURE AND FINDINGS: This is a delightful 77-year-old male who has had increasing hypoxia and dyspnea. He has pulmonary infiltrates and Dr. Tomi Caro worked him up. We ended up seeing him in the office and getting him ready for a lung biopsy. We elected to go to the left side because this lingula appeared to be the most affected. On 12/14/2017, the patient was brought to the operating room and underwent a left thoracoscopy. He had marked adhesions. His entire lung was stuck and we spent a good deal of time taking down all adhesions. We freed up the lingula which was quite stuck to the pericardial fat. I did a generous wedge resection of the portion of the lingula. Part was sent for culture. Frozen section showed fibrotic changes; however, the final pathology is pending permanent slides. The patient tolerated well; really did not have an air leak at the conclusion of the case. PROCEDURE: The patient brought to operating room and placed in supine position. General anesthesia induced. Endotracheal ablation was performed with single lumen tube. The patient was placed in right lateral decubitus position. Left chest prepped and draped in usual sterile fashion. Just posterior to the tip of the scapula, I made a small incision, put a 5 mm port and then went in with the camera, it could be seen there were adhesions. These were admitted to be difficult to get down. For this reason, I went anterior to about the fourth interspace anterior latissimus dorsi muscle and made a 5 mm incision and put a port in. It should be noted that I injected all of these ports with Exparel mixed with bupivacaine. This also had marked adhesions. For this reason, I then made a 15 mm incision at about the ninth interspace a bit anterior to the mid axillary line in this generous interspace. I went down and bluntly took down the adhesions and placed a 5 mm scope and using a Kitner, I then took down adhesions bluntly until I got back to the posterior port and then I was able to clear off the adhesions and then we insufflated CO2 to the posterior port. Using a Kitner and using a Harmonic scalpel, I started taking down adhesions. I took down the entire lower lobe and freed it up from the pericardial fat. I identified the phrenic nerve and care was taken to avoid injury to this and we really did not have adhesions in the pericardium per se and then freed up the entire diaphragmatic surface. I then freed it up all the way back down to the aorta. I took down the adhesions which were not quite as dense in the apex. Freed up the lingula nicely. This was difficult as that was quite stuck to the pericardial fat but finally got all of this off. I did use a cautery and Aquamantys for bleeding, although I really did not get in too much bleeding. We did peel off some of the visceral pleura from the lower lobe. It was not of a parenchymal defect per se, but we did get into this and there is some mild bleeding. We lost about 100 mL for the case. 266 mg of Exparel then mixed with 30 mL of 0.5% bupivacaine and 150 mL normal saline injected in each of the 3 ports. I then injected this in intercostal block fashion from the 2nd to the 11th rib. A 24-Cypriot chest tube was placed through the inferior most port after the muscle layers have been closed. We then sutured this in with heavy silk suture. A 4-0 Monocryl was used in running subcuticular fashion to approximate the wound edges. Really we did not have much of an air leak at the conclusion of the case. He was extubated without difficulty, awakened with very little in the way of pain and was transported to the postanesthesia care unit in stable condition. I attest to the content of the Intraoperative Record and any orders documented therein. Any exceptions are noted below. JAIME
[2017-12-14] MEDS: ACETAMINOPHEN IV 1,000 MG in EMPTY BAG 0 ML IV SCH (14:08)
[2017-12-14] MEDS: METOCLOPRAMIDE HCL INJ 5 MG/ML 2 ML VIAL IV. SCH ×2 (14:08→21:39)
[2017-12-14] MEDS: DOCUSATE SODIUM 100 MG CAP PO SCH (21:39)
[2017-12-15] MEDS: ACETAMINOPHEN IV 1,000 MG in EMPTY BAG 0 ML IV SCH ×2 (00:25→08:00)
[2017-12-15 04:00] VITALS: BP 153/78; PULSE 72; TEMP 36.7; O2SAT 92
[2017-12-15 05:33] LABS: HEMATOCRIT 49.4 % (42-52); HEMOGLOBIN 16.3 g/dL (14.0-18.0); MEAN CELL VOLUME 93.2 fL (80-100); MEAN CORPUSCULAR HEMOGLOBIN 30.8 pg (25-34); PLATELET COUNT 203 K/uL (130-400); RED CELL DISTRIBUTION WIDTH CV 13.7 % (11.5-14.5); RED CELL DISTRIBUTION WIDTH SD 46.7 fL (36.4-46.3); WHITE BLOOD COUNT 18.94 K/uL (4.8-10.8)
[2017-12-15] MEDS: METOCLOPRAMIDE HCL INJ 5 MG/ML 2 ML VIAL IV. SCH (05:47)
[2017-12-15 06:07] LABS: CREATININE 1.32 mg/dl (0.60-1.40)
[2017-12-15 07:25] VITALS: BP 170/92; PULSE 69; TEMP 36.6; O2SAT 90
--- NOTE | 2017-12-15 08:30 | Discharge Instructions ---
Discharge Instructions Date of Service December 15, 2017. Admission Reason for Admission: Pulmonary Nodule, Interstitial Lung Disease Discharge Discharge Diagnosis / Problem: Same Discharge Goals Goal(s): Learn about illness (Return to office to go over results) Activity Recommendations Activity Limitations: as noted below Lifting Limitations: gradually increase as tolerated Exercise/Sports Limitations: gradually increase as tolerated May Resume Sexual Activity: when tolerated Shower/Bathe: may shower/bathe in 3 days Driving or Machine Use: resume 3 days after discharge . Instructions / Follow-Up Instructions / Follow-Up My office will call you to set up appointment this week with a chest xray. Call the hospital at [phone] and page me with any problems. Remove all dressings and shower on Sunday, December 18, 2017 Current Hospital Diet Patient's current hospital diet: Regular Diet Discharge Diet Recommended Diet: Regular Diet Procedures Procedures Performed: Left Video Assisted Thoracoscopy with Lung Biopsy Pending Studies Studies pending at discharge: yes List of pending studies: Pathology Medical Emergencies . Who to Call and When: Medical Emergencies: If at any time you feel your situation is an emergency, please call 911 immediately. . Non-Emergent Contact Non-Emergency issues call your: Surgeon . "Provider Documentation" section prepared by Santana Levine. .
--- NOTE | 2017-12-15 08:47 | DIAGNOSTIC IMAGING REPORT ---
CHEST ONE VIEW PORTABLE HISTORY: left wedge resection COMPARISON: Chest 12/14/2017. FINDINGS: Left-sided chest tube is again noted and terminates within the left upper to mid pleural space. No definite pneumothorax. The heart remains mildly enlarged. Peripheral interstitial thickening is again noted. Patchy bibasilar densities have slightly improved. IMPRESSION: 1. No pneumothorax identified. Left-sided chest tube is noted. 2. Slight improved aeration within the patchy bibasilar densities. Electronically signed by: Evgeny Stroud M.D. 12/15/2017 8:46 AM Dictated Date/Time: 12/15/2017 8:44 AM
--- NOTE | 2017-12-15 08:50 | DIAGNOSTIC IMAGING REPORT ---
CHEST ONE VIEW PORTABLE HISTORY: Chest tube removal COMPARISON: Chest 12/15/2017. FINDINGS: No pneumothorax status post removal of the left-sided chest tube. The heart remains mildly enlarged. Peripheral interstitial thickening and patchy bibasilar densities persist. IMPRESSION: No pneumothorax status post removal of the left-sided chest tube. Electronically signed by: Evgeny Stroud M.D. 12/15/2017 8:49 AM Dictated Date/Time: 12/15/2017 8:48 AM
[2017-12-15] MEDS ORDERED: METOPROLOL SUCC 50MG EXT REL TAB PO SCH (09:00)
[2017-12-15] MEDS ORDERED: TIOTROPIUM BROMIDE 5 PUFF/90 MCG INH INH SCH (09:00)
[2017-12-15] MEDS ORDERED: ASPIRIN 81 MG ECTAB PO SCH (09:00)
[2017-12-15] MEDS ORDERED: ENOXAPARIN 30 MG/0.3 ML SYR SQ SCH (09:00)
[2017-12-15] MEDS ORDERED: LOSARTAN POTASSIUM 50 MG TAB PO SCH (09:00)
[2017-12-15] MEDS ORDERED: TAMSULOSIN HCL 0.4 MG CAP PO SCH (09:00)
[2017-12-15] MEDS ORDERED: AMLODIPINE BESYLATE 5 MG TAB PO SCH (09:00)
[2017-12-15] MEDS: DOCUSATE SODIUM 100 MG CAP PO SCH (09:30)
[2017-12-15 09:33] VITALS: BP 156/89; PULSE 72
[2017-12-15 09:47] VITALS: BP 156/89; PULSE 72; TEMP 36.6; O2SAT 90
--- NOTE | 2017-12-15 12:00 | DISCHARGE SUMMARY ---
DISCHARGE DIAGNOSIS: Hypoxia with pulmonary infiltrates. HOSPITAL COURSE: Chencho Vásquez is a delightful 77-year-old male who was on oxygen, who has become more short of breath and has pulmonary infiltrates. He has been discussing a biopsy for 3 months and decided he would like to go ahead and have one. Most of his radiographic changes were in his lingula. On 12/14/2017, we did a thoracoscopic biopsy of the lingula. I removed a sizable portion of it. He had marked adhesions, we had to take down all of them majority and enter the pleural cavity. We were able to do this thoracoscopically. Blood loss was negligible. He had no air leak. I removed his chest tube on postop day 1. He had a bit more pulmonary opacities in the left base; however, he sounded good, and he was on his baseline 4 L at 92% saturations. His x-ray looked good after we pulled the tube with no evidence of pneumothorax or effusion. He had no air leak. The patient has been ambulating in the hallway. He was voiding. He was tolerating a regular diet. He had very little in the way of pain. I have told him to take Tylenol for that. I will see him back in the office is in the coming week with an x-ray and to go over his pathology results.
== END 2017-12-15 10:39 | disposition home or self-care (01) | DRG 164 ==
LOC: C.ACU 05:16 → C.MSN 09:51 → ENRESERV 10:49
PROVIDERS: ADMIT Surgery; ATTEND Surgery
PROC: 0BN Respiratory System, Release (ICD-10-PCS; principal; 2017-12-14 07:15)
PROC: 0BBH4ZX Excision of Lung Lingula, Percutaneous Endoscopic Approach, Diagnostic (ICD-10-PCS; principal; 2017-12-14 07:15)
DX: R91.8 Other nonspecific abnormal finding of lung field (principal); J84.9 Interstitial pulmonary disease, unspecified; R09.02 Hypoxemia; J98.4 Other disorders of lung; J43.9 Emphysema, unspecified; Z99.81 Dependence on supplemental oxygen; I10 Essential (primary) hypertension; N40.0 Benign prostatic hyperplasia without lower urinary tract symptoms; E66.9 Obesity, unspecified; Z68.35 Body mass index [BMI] 35.0-35.9, adult; Z87.891 Personal history of nicotine dependence; Z72.89 Other problems related to lifestyle; Z79.51 Long term (current) use of inhaled steroids; Z79.82 Long term (current) use of aspirin; Z79.899 Other long term (current) drug therapy; Z98.890 Other specified postprocedural states; Z91.030 Bee allergy status